=== PATIENT | female | born 1950 | race Caucasian/White ===

== ENCOUNTER 2017-11-24 10:17 | Outpatient (CLI) | payer MEDICARE, OTHER, MEDICAID | END 2017-11-24 10:18 | disposition home or self-care (01) | LOC: SC 10:17 | PROVIDERS: ATTEND Nurse Practitioner Family | DX: G47.31 Primary central sleep apnea (principal) | CPT/HCPCS: 99215; G0463; 99212 ==

== ENCOUNTER 2018-01-26 09:35 | Outpatient (CLI) | payer MEDICARE, OTHER, MEDICAID | END 2018-01-26 09:36 | disposition home or self-care (01) | LOC: SC 09:35 | PROVIDERS: ATTEND Nurse Practitioner Family | DX: G47.31 Primary central sleep apnea (principal); G47.33 Obstructive sleep apnea (adult) (pediatric) | CPT/HCPCS: 99214; G0463; 99212 ==

== ENCOUNTER 2018-01-27 11:11 | Emergency (ER) | payer MEDICARE, OTHER, MEDICAID ==
[2018-01-27] MEDS ORDERED: ALBUTEROL NEB 2.5 MG/3 ML INH STA (12:30)
--- NOTE | 2018-01-27 12:32 | ED Physician Documentation ---
History of Present Illness - Stated complaint Stated Complaint: HIGH BP - Chief complaint Chief Complaint: General - History obtained from History obtained from: Patient - History of Present Illness Timing: Today (This is a 67-year-old woman with long-standing hypertension on meds and long history of smoking who presents with a 30-minute episode of dyspnea on exertion this morning without chest pain, dizziness. She does have a cough productive of brown sputum. No diagnosis of COPD or emphysema.) - Additonal information Additional information: . Review of Systems Constitutional: denies: Fever, Chills Cardiac: denies: Chest pain / pressure, Palpitations Respiratory: reports: Dyspnea, Cough GI: denies: Abdominal Pain, Nausea, Vomiting PD PAST MEDICAL HISTORY - Past Medical History Cardiovascular: Hypertension GI: Ulcers - Past Surgical History Past Surgical History: Yes General: Appendectomy HEENT: Tonsil/Adenoidectomy - Present Medications Home Medications: Ambulatory Orders Medication Instructions Recorded Confirmed Baclofen [Lioresal] 30 mg PO TID 09/23/12 04/05/13 Levothyroxine Sodium [Levothroid] 200 mcg PO DAILY 09/23/12 04/05/13 Metoprolol Succinate [Toprol Xl] 100 mg PO BID 09/23/12 04/05/13 RX: Lisinopril 40 mg PO DAILY 09/23/12 04/05/13 Sertraline HCl [Zoloft] 200 mg PO DAILY 09/23/12 04/05/13 tiZANidine [Zanaflex] 8 mg PO Q8H 09/23/12 04/05/13 diazePAM [Valium] 5 mg PO TID PRN #15 tablet 09/24/12 04/05/13 HYDROcod/ACETAM 5/325 [Vicodin 1 - 2 ea PO Q6H PRN 04/05/13 04/05/13 5/325] HYDROcod/ACETAM 5/325 [Vicodin 1 - 2 ea PO Q6H PRN #15 tablet 04/05/13 5/325] Liothyronine Sodium [Cytomel] 5 mcg PO DAILY 04/05/13 04/05/13 Ondansetron Odt [Zofran] 4 mg TL Q6H PRN #10 tablet 04/05/13 RX: Albuterol Sulf [Ventolin Hfa 1 - 2 puffs INH Q4HR PRN #1 inhaler 01/27/18 Inhaler] RX: predniSONE [Prednisone] 60 mg PO DAILY 5 Days #15 tablet 01/27/18 - Allergies Allergies/Adverse Reactions: Allergies Allergy/AdvReac Type Severity Reaction Status Date / Time No Known Drug Allergies Allergy Verified 01/27/18 11:31 - Social History Does the pt smoke?: No Smoking Status: Never smoker Does the pt drink ETOH?: No PD ED PE NORMAL - Vitals Vital signs reviewed: Yes - General General: Alert and oriented X 3, No acute distress - HEENT HEENT: PERRL, EOMI - Neck Neck: Supple, no meningeal sign, No bony TTP - Cardiac Cardiac: RRR, No murmur - Respiratory Respiratory: No respiratory distress, Other (Wheezy throughout, nonfocal) - Abdomen Abdomen: Non tender - Extremities Extremities: No edema, No calf tenderness / cord - Neuro Neuro: Alert and oriented X 3, Normal speech Results - Vitals Vitals: Vital Signs - 24 hr 01/27/18 11:28 Temperature 36.8 C Heart Rate 98 Respiratory 15 Rate Blood Pressure 149/102 H O2 Saturation 98 Oxygen O2 Source Room air - EKG (time done) 1301 Rate: Rate (enter#) (97) Rhythm: NSR [place]: Normal Intervals: Normal NH QRS: Normal Ischemia: Non specific changes (v. mild STD lateral, some of it d/t motion) Computer interpretation: Agree with computer - Rads (name of study) 2v CXR Radiology: EMP read contemporaneously (Elevated left hemidiaphragm with lingular atelectasis but no focal airspace disease.) PD MEDICAL DECISION MAKING - ED course ED course: 67-year-old woman, a long-term smoker presents with complaints of elevated blood pressure and dyspnea. Blood pressure really is not that high, and the dyspnea seems related to bronchitis or may be COPD given her long-standing smoking history. No evidence of infection or cardiac issue. Chadron better and lungs were clear after breathing treatment. - Sepsis Event Vital Signs: Vital Signs - 24 hr 01/27/18 11:28 Temperature 36.8 C Heart Rate 98 Respiratory 15 Rate Blood Pressure 149/102 H O2 Saturation 98 Oxygen O2 Source Room air Departure - Departure Disposition: 01 Home, Self Care Clinical Impression: Bronchitis Condition: Good Record reviewed to determine appropriate education?: Yes Instructions: ED Bronchitis Asthmatic, ED Smoking Cessation Prescriptions: RX: Albuterol Sulf [Ventolin Hfa Inhaler] 1 - 2 puffs INH Q4HR PRN #1 inhaler PRN Reason: Shortness Of Air/Wheezing RX: predniSONE [Prednisone] 60 mg PO DAILY 5 Days #15 tablet Comments: Call your doctor to arrange a follow-up appointment, make the next available appointment. In the interim, return anytime if worse or if new symptoms develop. Your blood pressure was elevated today on check into the emergency department. This does not mean that you have hypertension, it is a common phenomenon to come to the emergency department and have elevated blood pressure. I recommend that you see your primary care physician within the week to have it rechecked when you are feeling better. Discharge Date/Time: 01/27/18 16:23
--- NOTE | 2018-01-27 13:07 | XRAY Report ---
Reason: dyspnea, ?COPD Procedure Date: 01/27/2018 Accession Number: [id number] / [id number] Procedure: XR - Chest 2 View X-Ray CPT Code: 88668 FULL RESULT: EXAM: CHEST RADIOGRAPHY EXAM DATE: 01/27/2018 12:41 PM. CLINICAL HISTORY: Dyspnea, ?COPD. COMPARISON: XR ACUTE ABDOMEN SERIES 10/02/2006 7:23 PM CHEST W/ 02/17/2013 1:37 PM. TECHNIQUE: 2 views. FINDINGS: Lungs/Pleura: Left diaphragm is elevated. There is linear atelectasis in the lingula. No pleural vision or pneumothorax. No consolidative pneumonia. Mediastinum: Heart size is normal. There is mild aortic tortuosity. Other: Spine fixation hardware overlies upper thoracic spine. IMPRESSION: Elevated left diaphragm with lingula atelectasis. No focal airspace disease. RADIA
[2018-01-27 13:23] LABS: CALCIUM 9.3 mg/dL (8.5-10.3); CREATININE 0.7 mg/dL (0.4-1.0)
[2018-01-27 16:09] VITALS: BP 136/88
== END 2018-01-27 16:23 | disposition home or self-care (01) ==
LOC: ED 11:11
DX: J40 Bronchitis, not specified as acute or chronic (principal); Z87.891 Personal history of nicotine dependence; I10 Essential (primary) hypertension; R94.31 Abnormal electrocardiogram [ECG] [EKG]
CPT/HCPCS: 71046; 80048; 84484; 93005; 94640; 99283

== ENCOUNTER 2018-03-03 09:34 | Outpatient (CLI) | payer MEDICARE, OTHER, MEDICAID | END 2018-03-03 09:35 | disposition home or self-care (01) | LOC: SC 09:34 | PROVIDERS: ATTEND Nurse Practitioner Family | DX: G47.31 Primary central sleep apnea (principal); G47.33 Obstructive sleep apnea (adult) (pediatric); G47.00 Insomnia, unspecified | CPT/HCPCS: 99214; G0463; 99212 ==

== ENCOUNTER 2018-08-12 09:25 | Outpatient (CLI) | payer MEDICARE, OTHER, MEDICAID ==
--- NOTE | 2018-08-13 05:55 | MRI Report ---
Reason: OTHER INSTABILITY, RIGHT KNEE Procedure Date: 08/12/2018 Accession Number: [id number] / [id number] Procedure: MRI - Knee RT W/O CPT Code: FULL RESULT: EXAM: RIGHT KNEE MRI WITHOUT CONTRAST EXAM DATE: 08/12/2018 11:23 AM. CLINICAL HISTORY: Other instability, right knee. Pain. COMPARISON: MRI 07/29/2018 (images only, no report available). TECHNIQUE: Multiplanar, multisequence T1-weighted and fluid-sensitive sequences of the knee without contrast. Other: None. FINDINGS: Bones: No gross fracture or bone lesion. Severe tricompartmental degenerative changes with moderate to severe mechanical wear of the articular surfaces, most prominent at the tibial plateaus. Large tricompartmental osteophytes with fragmentation. Moderate to severe lateral subluxation of the patella. Articular Cartilage: Diffuse full-thickness cartilage loss at the medial and lateral compartments and diffuse partial-thickness to full-thickness cartilage loss at the patellofemoral joint. Medial Meniscus: Diffuse degenerative maceration. Lateral Meniscus: Diffuse degenerative maceration. Cruciate Ligaments: No discernible intact fibers anterior cruciate ligament. Diffuse distortion of the posterior cruciate ligament. A few fibers may remain intact. Collateral Ligaments: Medial and lateral collateral ligaments grossly intact. Tendons: Quadriceps and patellar tendons unremarkable. Diffusely attenuated distal semimembranosus tendon. Some fibers may remain intact. Popliteus tendon difficult to discern. Musculature: Mild to moderate fatty atrophy in the posterior compartment distal thigh. Moderate to severe fatty atrophy posterior aspect of the calf. Other: Large joint effusion with diffuse synovitis and debris. Innumerable intra-articular bodies. Largest body in the superolateral aspect suprapatellar fluid measures 2.9 cm transverse. No popliteal cyst. Diffusely attenuated medial retinaculum and medial patellofemoral ligament. Mild subcutaneous edema anteriorly. Mild reactive edema in the fat pads. IMPRESSION: 1. Severe tricompartmental changes with moderate to severe mechanical wear at the articular surfaces. 2. Moderate to severe lateral subluxation of the patella. 3. Large joint effusion with diffuse synovitis, debris, and intra-articular bodies. 3 cm intra-articular body superolaterally. 4. Degenerative maceration medial and lateral menisci. 5. Complete rupture anterior cruciate ligament. High-grade partial versus complete disruption posterior cruciate ligament. These are likely chronic. 6. Diffusely attenuated medial retinaculum and medial patellofemoral ligament, likely due to chronic lateral patellar subluxation. 7. Moderate to severe fatty atrophy of the musculature, most prominent in the posterior calf. RADIA
== END 2018-08-12 09:26 | disposition home or self-care (01) ==
LOC: DI 09:25
PROVIDERS: ATTEND Nurse Practitioner Family
DX: M17.11 Unilateral primary osteoarthritis, right knee (principal); S83.011A Lateral subluxation of right patella, initial encounter; M65.861 Other synovitis and tenosynovitis, right lower leg; S83.511A Sprain of anterior cruciate ligament of right knee, initial encounter; S83.521A Sprain of posterior cruciate ligament of right knee, initial encounter; M62.561 Muscle wasting and atrophy, not elsewhere classified, right lower leg

== ENCOUNTER 2018-09-03 12:05 | Outpatient (CLI) | payer MEDICARE, OTHER, MEDICAID ==
--- NOTE | 2018-09-03 16:16 | XRAY Report ---
Reason: ACQUIRED DEFORMITY OF CHEST AND RIB Procedure Date: 09/03/2018 Accession Number: [id number] / [id number] Procedure: XR - Chest 2 View X-Ray CPT Code: 05132 FULL RESULT: EXAM: CHEST RADIOGRAPHY EXAM DATE: 09/03/2018 12:21 PM. CLINICAL HISTORY: Acquired deformity of chest and rib. COMPARISON: CHEST 2 VIEW 01/27/2018 12:40 PM. TECHNIQUE: 2 views. FINDINGS: Lungs/Pleura: No focal opacities evident. No pleural effusion. No pneumothorax. Normal volumes. Mediastinum: Heart and mediastinal contours are unremarkable. Other: Stable elevation of the left hemidiaphragm versus broad-based eventration. Stable posterior spinal fixation hardware upper thoracic spine. Stable multilevel degenerative osteophyte of the thoracic spine. IMPRESSION: 1. Stable elevation of the left hemidiaphragm versus broad-based eventration. 2. No appreciable infiltrates, effusion or edema. RADIA
== END 2018-09-03 12:06 | disposition home or self-care (01) ==
LOC: DI 12:05
PROVIDERS: ATTEND Registered Nurse
DX: M95.4 Acquired deformity of chest and rib (principal)
CPT/HCPCS: 71046

== ENCOUNTER 2018-12-15 10:01 | Outpatient (CLI) | payer MEDICARE, OTHER, MEDICAID ==
[2018-12-15 11:05] VITALS: BP 120/70
--- NOTE | 2018-12-15 11:05 | SLEEP CARE CONSULTATION ---
Information from patient questionnaire entered by Zuri Ravi. I have reviewed and concur with the information entered by Zuri Ravi. This document represents the service I personally performed and the decisions made by me, Brenda Moran, RN, MSN, DIRECTOR MEDICA[employer]. History of Present Illness Previous diagnosis: Moderate, Obstructive Sleep Apnea-Hypopnea Syndrome AHI: 25.7 Reason for CPAP/BiPAP follow up: other (9 month ) Accompanied by: childcare director Della Jones Equipment type: CPAP Equipment obtained from: [facility] Mask style: Nasal (Dreamwear) Mask brand: Respironics Backup mask available: Yes Last cushion change: 3 weeks ago HPI additional information: Patient came in a wheelchair. CPAP Compliance Data - Data Reviewed with Patient Average duration of nightly device use: 3.2 Compliance rate %: 24.4 (180 days) Current pressure setting (cmH2O): 17-20 Humidity settin Heated hose settin Average residual AHI: 12.5 Central apnea: 3.5 Obstructive apnea: 2.4 Hypopnea: 6.6 Average large leak: 37 mins Subjective Patient concerns: reports: mask leak noise (occasional), other (feeling clastrophibic at 4-5 am / waking at night due to car crusier that drives in driveway everynight waking her with the lights of car and noise. ). denies: aerophagia, mask discomfort, air blowing in eyes, condensation in mask/hose, nasal congestion, dry mouth, nose, throat, epistaxis Observed to snore while using device: No (sleeps alone) Current pressure setting perceived as: comfortable On therapy, patient: reports: sleeping better, awakening more refreshed, being more awake and alert during the day, more rested overall. denies: drowsiness while driving (does not drive) Initial [place] Sleepiness Scale score: 16 Current [place] Sleepiness Scale score: 1 Allergies and Home Medications Known drug allergies: No Home medication list reviewed: Yes Allergy and home medication list: Amitriptyline 75mg HS Lasix 20mg daily in morning Metoprolol 100mg tab one twice daily Lisinopril 40mg tab one daily Baclofen 20mg tab one three times daily Clotrimazole 1% cream Apply to affected area twice daily prn Levothyroxine 75mcg tab one daily Levothyroxine 100mcg one daily Liothyronin Sodium 5mcg one daily Celecoxib 100mg tab one twice daily Vitamin C 5000mg tab one daily Vitamin D 5000IU tab one daily Betaine 10mg tab one to two daily at bedtime Review of Systems Review of systems same as previous: No (added lasix for ankle edema. orthopedic consult for knee pain and surgery ?) Physical Exam Blood Pressure: 120/70 Cuff size: long Heart Rate: 95 O2 Saturation: 96 Weight (kg): 244 lb (at last doctors appt a week ago) Weight change since last visit: lost 6 pounds Impression and Plan 1. Obstructive Sleep Apnea-Hypopnea Syndrome, moderate, with poor treatment compliance and elevated residual AHI. On CPAP therapy, the patient has better sleep quality and is more rested overall. It appears her residual is elevated only when significant mask leaks. At the beginning and end of compliance her AHI was normal with minimal mask leaks. Thus she is advised to saida her mask where it fits best as the last 2 nights. To reduce waking from car lights of nightly cruizer and improve sleep efficiency and compliance, she is advised to consider black out curtains or blinds. She is also advised to contact the police of this nightly activity that disrupts her sleep. For her claustrophobia feeling most mornings, even with mask leaks controlled, I will increase her autoCPAP pressure slightly. She is to contact me if pressure uncomfortable or if still claustrophobic. She was again reminded of compliance goals. But basically the goal is to use CPAP with all sleep for maximum benefit of treatment. Also she would like to update her CPAP but needs to be compliant first. Patient's apnea s everity and rationale for treatment to reduce apnea, improve sleep quality and reduce cardiovascular and cerebrovascular events was reviewed. I also reviewed the benefit of consistent device use of CPAP for depression/anxiety, and pain management. * Change CPAP pressure to 18-20 cmH2O * Black out curtains, * Adjust mask * Update mask cushions more frequently. * Notify me if snoring with mask or feeling that the pressure is too much or too little * Attempt to lose weight * Return for follow up in 1-2 months , or sooner if concerns arise I spent 100% of this 35 minute visit face to face with the patient with greater than 50% of this was spent time counseling the patient and coordination of care.
== END 2018-12-15 10:02 | disposition home or self-care (01) ==
LOC: SC 10:01
PROVIDERS: ATTEND Nurse Practitioner Family
DX: G47.33 Obstructive sleep apnea (adult) (pediatric) (principal)
CPT/HCPCS: 99214; G0463; 99212

== ENCOUNTER 2019-01-24 10:07 | Outpatient (CLI) | payer MEDICARE, OTHER, MEDICAID | END 2019-01-24 10:08 | disposition short-term general hospital (02) | LOC: EMS 10:07 | PROVIDERS: ATTEND Surgery | DX: R25.9 Unspecified abnormal involuntary movements (principal); R53.1 Weakness; W06.XXXA Fall from bed, initial encounter; Y92.003 Bedroom of unspecified non-institutional (private) residence as the place of occurrence of the external cause | CPT/HCPCS: A0425; A0429 ==

== ENCOUNTER 2019-02-04 10:15 | Outpatient (CLI) | payer MEDICARE, OTHER, MEDICAID ==
[2019-02-04 15:47] LABS: MONOCYTES % (AUTO) 6.4 %; RED BLOOD COUNT 4.76 10^6/uL (4.20-5.40)
[2019-02-04 15:53] LABS: BASOPHILS % (AUTO) 1.6 %; EOSINOPHILS % (AUTO) 1.4 %; HGB - HEMOGLOBIN 14.3 g/dL (12.0-16.0); LYMPHOCYTES % (AUTO) 23.3 %; MEAN CORPUSCULAR HGB CONC 31.6 g/dL (32.0-36.0); MEAN PLATELET VOLUME 10.3 fL (7.9-10.8); PLT - PLATELET COUNT 506 10^3/uL (130-450); RED CELL DISTRIBUTION WIDTH 16.3 % (12.0-15.0); WHITE BLOOD COUNT 12.1 x10^3/uL (4.8-10.8)
[2019-02-04 15:57] LABS: ABNORMAL LYMPHS % (MANUAL) 0 %
[2019-02-04 15:58] LABS: ALBUMIN 3.6 g/dL (3.2-5.5); ALBUMIN/GLOBULIN RATIO 1.2 (1.0-2.2); BILIRUBIN,TOTAL 0.6 mg/dL (0.2-1.0); CALCIUM 8.8 mg/dL (8.5-10.3); CREATININE 0.8 mg/dL (0.4-1.0); TOTAL PROTEIN 6.5 g/dL (6.7-8.2)
[2019-02-04 16:45] LABS: BAND NEUTROPHILS % (MANUAL) 2 %; EOSINOPHILS # (MANUAL) 0.2 10^3/uL (0-0.7); LYMPHOCYTES # (MANUAL) 2.7 10^3/uL (1.5-3.5); LYMPHOCYTES % (MANUAL) 22 %; MONOCYTES # (MANUAL) 1.3 10^3/uL (0.0-1.0)
[2019-02-04 16:48] LABS: DIFFERENTIAL COMMENT MANUAL DIFFERENTIAL; PLATELET ESTIMATE, MANUAL INCREASED (>450,000) (NORMAL); PLATELET MORPHOLOGY NORMAL APPEARANCE (NORMAL); RBC MORPHOLOGY (MULTIPLE) NORMAL APPEARANCE (NORMAL)
== END 2019-02-04 23:59 | disposition home or self-care (01) ==
LOC: LAB.R 10:15
DX: N17.9 Acute kidney failure, unspecified (principal); G93.40 Encephalopathy, unspecified; M48.061 Spinal stenosis, lumbar region without neurogenic claudication; E03.9 Hypothyroidism, unspecified
CPT/HCPCS: 80053; 84443; 85025

== ENCOUNTER 2019-02-10 02:10 | Outpatient (CLI) | payer MEDICARE, OTHER, MEDICAID ==
[2019-02-10 03:34] LABS: BASOPHILS # (AUTO) 0.1 10^3/uL (0.0-0.1); BASOPHILS % (AUTO) 1.4 %; EOSINOPHILS # (AUTO) 0.2 10^3/uL (0.0-0.7); EOSINOPHILS % (AUTO) 2.4 %; HGB - HEMOGLOBIN 13.5 g/dL (12.0-16.0); LYMPHOCYTES % (AUTO) 41.7 %; MEAN CORPUSCULAR HEMOGLOBIN 29.6 pg (27.0-31.0); MEAN CORPUSCULAR HGB CONC 31.3 g/dL (32.0-36.0); MEAN CORPUSCULAR VOLUME 94.7 fL (81.0-99.0); MEAN PLATELET VOLUME 10.7 fL (7.9-10.8); MONOCYTES # (AUTO) 0.7 10^3/uL (0.0-1.0); NEUTROPHILS # (AUTO) 4.5 10^3/uL (1.5-6.6); PLT - PLATELET COUNT 338 10^3/uL (130-450); RED BLOOD COUNT 4.56 10^6/uL (4.20-5.40); RED CELL DISTRIBUTION WIDTH 16.3 % (12.0-15.0); WHITE BLOOD COUNT 9.7 x10^3/uL (4.8-10.8)
[2019-02-10 03:39] LABS: CALCIUM 8.8 mg/dL (8.5-10.3); CREATININE 0.7 mg/dL (0.4-1.0)
== END 2019-02-10 23:59 | disposition home or self-care (01) ==
LOC: LAB.R 02:10
DX: G93.40 Encephalopathy, unspecified (principal)
CPT/HCPCS: 80048; 85025

== ENCOUNTER 2020-02-23 12:44 | Outpatient (CLI) | payer MEDICARE, OTHER, MEDICAID ==
--- NOTE | 2020-02-23 15:29 | XRAY Report ---
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 COMPARISON: None. FINDINGS: Bones: C7-T4 posterior fixation hardware. No fractures or dislocations. No suspicious bony lesions. 12 pairs of ribs are noted, and appear intact where visualized. Moderate to severe degenerative disc changes noted throughout the lumbar spine. Ankylosis of the upper and lower thoracic spine compatibl e with reported history of ankylosing spondylitis. Soft tissues: No paravertebral stripe thickening. IMPRESSION: 1. No fracture. No acute osseous lesion. If there is continued clinical concern for pathology, then M RI should be considered for further evaluation. 2. Multilevel ankylosis compatible with reported history of ankylosing spondylitis. 3. Moderate to severe multilevel degenerative disc disease. Reviewed by: Kristyn Avila MD, PhD on 02/23/2020 3:27 PM PST Approved by: Kristyn Avila MD, PhD on 02/23/2020 3:27 PM PST Station ID: [id number]
== END 2020-02-23 12:45 | disposition home or self-care (01) ==
LOC: DI.S 12:44
PROVIDERS: ATTEND Registered Nurse
DX: M45.0 Ankylosing spondylitis of multiple sites in spine (principal); M51.34 Other intervertebral disc degeneration, thoracic region
CPT/HCPCS: 72070

== ENCOUNTER 2020-03-28 09:19 | Outpatient (CLI) | payer MEDICARE, OTHER, MEDICAID ==
--- NOTE | 2020-03-28 10:17 | SLEEP CARE CONSULTATION ---
Information from patient questionnaire entered by Zuri Ravi. I have reviewed and concur with the information entered by Zuri Ravi. This document represents the service I personally performed and the decisions made by , Eli Mensah ARNP. History of Present Illness Service Date and Time: 03/28/2020918 Previous diagnosis: Moderate, Obstructive Sleep Apnea-Hypopnea Syndrome AHI: 25.7 (in 2014)(14.9 in 2012) Reason for follow up: annual (last seen 11/2018) Equipment type: CPAP Equipment obtained from: [employer] (cannot get supplies, they no longer deal with them) Mask style: Full face Mask brand: Respironics (Dreamwear) Backup mask available: No (when replaced with keep old mask) Last cushion change: 1 week ago Prior sleep studies: Yes Year and Where: 2012 and 2014 - [facility]; 2007 - [facility] Type of Sleep Study: Polysomnography HPI additional information: ALEYDA SALGADO was diagnosed to have moderate, AHI 25.7, obstructive sleep apne a-hypopnea syndrome and returned today accompanied by her caregiver for CPAP therapy annual follow-up. CPAP Compliance Data - Data Reviewed with Patient Average duration of nightly device use: 2 hr 29 min Compliance rate %: 5.6 (180 days) Current pressure setting (cmH2O): 18-20 Humidity settin Heated hose settin Average residual AHI: 7.9 Average large leak: 20 min 28 sec Subjective Missed days of use due to: reports: other (issues with peeping Devonte waking me up) Patient concerns: reports: mask discomfort (was unable to replace mask for a long time contributing to not wearing mask for full night), air blowing in eyes (better with new mask), mask leak noise (better with new mask), other (taking mask off without realizing it). 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 Obstructive Sleep Apnea-Hypopnea Syndrome, moderate, with poor treatment compliance and fair apnea control with elevated AHI. On CPAP therapy, the patient has better sleep quality and is more rested overall. Patient has been having more problems with sleeping with lights coming in her windows (a supposed peeping devonte) and keep her awake for about 3 months straight. She states this has since improved and no lights are waking her up. She was unable to afford to get the blackout curtains discussed at her last visit. She will see if she can get them now and put them up to reduce chance of lights bothering her at night. She has also found that she has removed her mask at night due to it being uncomfortable since she was unable to replace it normally. She only recently found a new mask and things have improved since she started using it. The patients CPAP is also over 5 years old and of reasonable use. Thus, the CPAP will be updated. A DWO prescription will be made. Compliance guidelines for new device and follow up discussed. For patient supply concerns, her DME is no longer carrying supplies. She has been unable to get supplies from her DME. Patient was informed that another DME can be used. I will have my academic services coordinator inform of DME options. A DWO prescription will then be made. Patient advised to contact this office if further supply problems. Patient's apnea severity and rationale for treatment to reduce apnea, improve sleep quality and reduce cardiovascular and cerebrovascular events was reviewed. I also reviewed the benefit of consistent device use of CPAP for depression and anxiety. * Continue auto CPAP pressure at 18-20 cmH2O * Transfer DME * Update APAP machine * Notify me if snoring with mask or feeling that the pressure is too much or too little * Attempt to lose weight * Call this office if any problems using CPAP * Return for follow up in 1-2 months after obtaining new machine, or sooner if concerns arise Counseling Topics: Spare mask, Weight loss health impact Visit Type: In Office Other Participants: Caregiver Time Spent with Patient (minutes): 23 Provider Statement: I spent 100% of the Face to Face Visit with the patient with greater than 50% spent counseling the patient and coordination of care.
== END 2020-03-28 09:20 | disposition home or self-care (01) ==
LOC: SC 09:19
PROVIDERS: ATTEND Nurse Practitioner Family
DX: G47.33 Obstructive sleep apnea (adult) (pediatric) (principal); E66.9 Obesity, unspecified; Z68.39 Body mass index [BMI] 39.0-39.9, adult
CPT/HCPCS: 99213; G0463; 99212

== ENCOUNTER 2020-07-18 09:36 | Outpatient (CLI) | payer MEDICARE, OTHER, MEDICAID ==
--- NOTE | 2020-07-18 10:24 | SLEEP CARE CONSULTATION ---
Information from patient questionnaire entered by Zuri Ravi. I have reviewed and concur with the information entered by Zuri Ravi. This document represents the service I personally performed and the decisions made by , Eli Mensah ARNP. History of Present Illness Service Date and Time: 07/18/2020 0936 Previous diagnosis: Moderate, Obstructive Sleep Apnea-Hypopnea Syndrome AHI: 25.7 (in 2014)(14.9 in 2012) Reason for follow up: first compliance after device update Equipment type: CPAP Equipment obtained from: [employer] (getting supplies but having communication issue s on her mask) Mask style: Full face Backup mask available: No (old mask does not) Last cushion change: couple months Prior sleep studies: Yes Year and Where: 2012 and 2014 - [facility]; 2007 - [facility] Type of Sleep Study: Polysomnography HPI additional information: ALEYDA SALGADO was diagnosed to have moderate, AHI 25.7, obstructive sleep apnea-hypopnea syndrome and returned today with caregiver for CPAP therapy first compliance after updating device follow-up. CPAP Compliance Data - Data Reviewed with Patient Average duration of nightly device use: 53 min 14 sec Compliance rate %: 0 Current pressure setting (cmH2O): 18-20 Humidity settin Heated hose settin Average residual AHI: 17.6 Average large leak: 27 min 28 sec Subjective Missed days of use due to: reports: mask issues (many problems concerning mask) Patient concerns: reports: mask discomfort, air blowing in eyes, mask leak noise, other (unable to use current mask due to being unable to raise arms to put mask on). denies: aerophagia, condensation in mask/hose, nasal congestion, dry mouth, nose, throat, epistaxis Observed to snore while using device: No Current pressure setting perceived as: comfortable On therapy, patient: reports: sleeping better, awakening more refreshed, being more awake and alert during the day, more rested overall. denies: drowsiness while driving Initial [place] Sleepiness Scale score: 16 (in 2012) Current [place] Sleepiness Scale score: 0 Allergies and Home Medications Drug allergies reviewed: Yes (NKDA) Home medication list reviewed: Yes (no changes) Review of Systems Review of systems same as previous: Yes (no changes) Physical Exam Heart Rate: 62 O2 Saturation: 95 Height: 5 ft 4 in Weight: 226 lb Body Mass Index: 38.7 BMI Classification: Obese Impression and Plan 1. Obstructive Sleep Apnea-Hypopnea Syndrome, moderate, with poor treatment compliance and poor apnea control. On CPAP therapy, the patient has better sleep quality and is more rested overall. She has not been able to use her machine because the mask is not fitting right and she is getting air leaking into her eyes. She is not able to put the new full face mask on because she cannot lift her arms high enough to put on the headgear properly. She did try to tell someone at [facility] that she needed a different mask but was told she could not change until September. She would like to go back to using a full face mask that is an AirTouch F20 medium that works better for her and she is able to put it on herself. Patient's apnea severity and rationale for treatment to reduce apnea, improve sleep quality and reduce cardiovascular and cerebrovascular events was reviewed. I also reviewed the benefit of consistent device use of CPAP for depression/anxiety. * Continue auto CPAP pressure at 18-20 cmH2O * Change back to AirTouch F20 medium full face mask * Notify me if snoring with mask or feeling that the pressure is too much or too little * Attempt to lose weight * Call this office if any problems using CPAP * Return for follow up in 1-2 months, or sooner if concerns arise Counseling Topics: Weight loss health impact Visit Type: In Office Time Spent with Patient (minutes): 26 Provider Statement: I spent 100% of the Face to Face Visit with the patient with greater than 50% spent counseling the patient and coordination of care.
== END 2020-07-18 09:37 | disposition home or self-care (01) ==
LOC: SC 09:36
PROVIDERS: ATTEND Nurse Practitioner Family
DX: G47.33 Obstructive sleep apnea (adult) (pediatric) (principal); E66.9 Obesity, unspecified; Z68.38 Body mass index [BMI] 38.0-38.9, adult
CPT/HCPCS: 99213; G0463; 99212

== ENCOUNTER 2020-08-22 09:15 | Outpatient (CLI) | payer MEDICARE, OTHER, MEDICAID ==
--- NOTE | 2020-08-22 10:26 | SLEEP CARE CONSULTATION ---
Information from patient questionnaire entered by Zuri Ravi. I have reviewed and concur with the information entered by Zuri Ravi. This document represents the service I personally performed and the decisions made by , Eli Mensah ARNP. History of Present Illness Service Date and Time: 08/22/2020 09 Previous diagnosis: Moderate, Obstructive Sleep Apnea-Hypopnea Syndrome AHI: 25.7 (in 2014)(14.9 in 2012) Reason for follow up: one month Equipment type: CPAP Equipment obtained from: [employer] (want machine back due to low compliance) Mask style: Full face (triangle, old mask) Backup mask available: No (needs supplies) Last cushion change: using old mask Prior sleep studies: Yes Year and Where: 2012 and 2014 - [facility]; 2007 - [facility] Type of Sleep Study: Polysomnography HPI additional information: ALEYDA SALGADO was diagnosed to have moderate, AHI 25.7, obstructive sleep apnea-hypopnea syndrome and returned today with caregiver for CPAP therapy one month follow-up. CPAP Compliance Data - Data Reviewed with Patient Average duration of nightly device use: 2 hr 58 min Compliance rate %: 13.3 Current pressure setting (cmH2O): 18-20 Humidity settin Heated hose settin Average residual AHI: 11.9 Average large leak: 31 min 50 sec Subjective Missed days of use due to: reports: other (insomnia limiting mask use) Patient concerns: denies: aerophagia, mask discomfort, air blowing in eyes, mask leak noise, condensation in mask/hose, nasal congestion, dry mouth, nose, throat , epistaxis, other Observed to snore while using device: No Current pressure setting perceived as: comfortable On therapy, patient: reports: sleeping better, awakening more refreshed, being more awake and alert during the day, more rested overall. denies: drowsiness while driving Initial [place] Sleepiness Scale score: 16 (in 2012) Current [place] Sleepiness Scale score: 0 Allergies and Home Medications Home medication list reviewed: Yes (no new meds) Review of Systems Review of systems same as previous: No (insomnia) Physical Exam Heart Rate: 77 O2 Saturation: 97 Height: 5 ft 4 in Weight: 228 lb Weight change since last visit: 3 ob gain Body Mass Index: 39.1 BMI Classification: Obese Impression and Plan 1. Obstructive Sleep Apnea-Hypopnea Syndrome, moderate, with poor treatment compliance and fair apnea control with elevated residual AHI. On CPAP therapy, the patient has better sleep quality and is more rested overall. She is having insomnia. She is listening to radio programs until 2 AM and then switches to classical music channel to go to sleep. She falls asleep from 30 minutes or if it goes to 2 hours she knows she has insomnia and will not fall asleep. She gets up when the light wakes her up in the morning. She normally gets up about 5-6 AM. She will try to go back to bed for an hour or so but is not always able to sleep. On nights she cannot go to sleep she is not sure why she cannot sleep. She does use sequencing tightening muscles and relaxation to try to relax when she goes to bed. She denies ruminating thoughts or anxieties. She states her insomnia initially started with lights coming in her window early in the morning and waking her up thinking there was a peeping sony a long time ago. She was advised to cover the window with something to block the light coming in from her window in the mornings and waking her up. Then she can try to sleep longer and get 4 or more hours of sleep with her CPAP on. She voiced understanding. She states [facility] wants her to return her new machine. She still has an old machine that was working fine when she got the new machine. I advised her to switch back to the older machine until she is able to get her compliance numbers up. She is to put mask on when laying down and try to associate sleeping in the bed with putting on the mask. She agreed with plan of care. I also discussed with patient that I think it would be good to have a titration study to determine if she should need a BIPAP machine since she is mainly using 20 cmH2O on her CPAP and still has an elevated residual AHI. She would need someone to stay with her to help her to the bathroom during the night. I advised her to talk to her caregiver and family to see if someone can stay a night with her for a titration study. We will revisit this once we are able to improve her compliance. Patient's apnea severity and rationale for treatment to reduce apnea, improve sleep quality and reduce cardiovascular and cerebrovascular events was reviewed. I also reviewed the benefit of consistent device use of CPAP for hypertension and depression/anxiety. * Continue auto CPAP pressure at 18-20 cmH2O * Return new CPAP to [facility] and use old machine * Increase compliance use so we may revisit a possible titration study * Notify me if snoring with mask or feeling that the pressure is too much or too little * Attempt to lose weight * Call this office if any problems using CPAP * Return for follow up in 1-2 months to recheck compliance, or sooner if concerns arise Counseling Topics: Spare mask, Weight loss health impact Visit Type: In Office Other Participants: Caregiver Time Spent with Patient (minutes): 44 Provider Statement: I spent 100% of the Face to Face Visit with the patient with greater than 50% spent counseling the patient and coordination of care.
== END 2020-08-22 09:16 | disposition home or self-care (01) ==
LOC: SC 09:15
PROVIDERS: ATTEND Nurse Practitioner Family
DX: G47.33 Obstructive sleep apnea (adult) (pediatric) (principal); E66.9 Obesity, unspecified; Z68.39 Body mass index [BMI] 39.0-39.9, adult; G47.00 Insomnia, unspecified
CPT/HCPCS: 99215; G0463; 99212

== ENCOUNTER 2020-10-17 09:33 | Outpatient (CLI) | payer MEDICARE, OTHER, MEDICAID ==
--- NOTE | 2020-10-17 10:30 | SLEEP CARE CONSULTATION ---
Information from patient questionnaire entered by Zuri Ravi. I have reviewed and concur with the information entered by Zuri Ravi. This document represents the service I personally performed and the decisions made by , Eli Mensah ARNP. History of Present Illness Service Date and Time: 10/17/2020 0933 Previous diagnosis: Moderate, Obstructive Sleep Apnea-Hypopnea Syndrome AHI: 25.7 (in 2014)(14.9 in 2012) Reason for follow up: other (2 month) Equipment type: CPAP Equipment obtained from: [employer] (She wants to change to [employer]) Mask style: Full face (AirFit F20) Backup mask available: No (needs supplies) Prior sleep studies: Yes Year and Where: 2012 and 2014 - [facility]; 2007 - [facility] Type of Sleep Study: Polysomnography HPI additional information: ALEYDA SALGADO was diagnosed to have moderate, AHI 25.7, obstructive sleep apnea-hypopnea syndrome and returned today with caregiver for CPAP therapy two month follow-up. CPAP Compliance Data - Data Reviewed with Patient Average duration of nightly device use: 2 hr 56 min Compliance rate %: 11.7 (60 days) Current pressure setting (cmH2O): 18-20 Humidity settin Heated hose settin Average residual AHI: 11.6 Average large leak: 32 min 9 sec Subjective Patient concerns: reports: air blowing in eyes. denies: aerophagia, mask discomfort, mask leak noise, condensation in mask/hose, nasal congestion, dry mouth, nose, throat, epistaxis, other Observed to snore while using device: No Current pressure setting perceived as: comfortable On therapy, patient: reports: sleeping better, awakening more refreshed, being more awake and alert during the day, more rested overall. denies: drowsiness while driving (she doesn't drive) Initial [place] Sleepiness Scale score: 16 (in 2012) Current [place] Sleepiness Scale score: 0 Allergies and Home Medications Home medication list reviewed: Yes (Quetiapine 25 mg at bedtime) Review of Systems Review of systems same as previous: Yes (insomnia) Physical Exam Heart Rate: 64 O2 Saturation: 94 Height: 5 ft 4 in Weight: 232 lb Body Mass Index: 39.8 BMI Classification: Obese Impression and Plan 1. Obstructive Sleep Apnea-Hypopnea Syndrome, moderate, with poor treatment compliance and fair apnea control. On CPAP therapy, the patient has better sleep quality and is more rested overall. Patient states her insomnia has gotten worse and she did not like the last 2 nights. She is also not able to get supplies because her compliance has been so poor that her insurance is not covering them at this time. She needs to get more supplies and discussed with her possibly getting some offline to supplement until she is able to reach compliance. She would like to transfer her DME to [facility]. I will have my watershed coordinator inform of DME options. I will write to transfer her DME but I emphasized with her that she may not be able to get supplies from them until she brings up her compliance. She voiced understanding. She was encouraged to use her CPAP with all naps and to put on when lying in bed listening to her radio to prevent from falling asleep without it. She voiced understanding and agreement with this plan of care. I will follow up with her again in 1 to 2 months. We did continue to discuss getting a titration study but patient is concerned about being able to stay overnight and needing help to the bathroom. Patient's apnea severity and rationale for treatment to reduce apnea, improve sleep quality and reduce cardiovascular and cerebrovascular events was reviewed. I also reviewed the benefit of consistent device use of CPAP for hypertension and depression/anxiety. * Continue auto CPAP pressure at 18-20 cmH2O * Transfer DME and update supplies once compliance has been reached * Notify me if snoring with mask or feeling that the pressure is too much or too little * Attempt to lose weight * Call this office if any problems using CPAP * Return for follow up in 1-2 months, or sooner if concerns arise Counseling Topics: Spare mask, Weight loss health impact Visit Type: In Office Other Participants: Caregiver Time Spent with Patient (minutes): 29 Provider Statement: I spent 100% of the Face to Face Visit with the patient with greater than 50% spent counseling the patient and coordination of care.
== END 2020-10-17 09:34 | disposition home or self-care (01) ==
LOC: SC 09:33
PROVIDERS: ATTEND Nurse Practitioner Family
DX: G47.33 Obstructive sleep apnea (adult) (pediatric) (principal); E66.9 Obesity, unspecified; Z68.39 Body mass index [BMI] 39.0-39.9, adult
CPT/HCPCS: 99213; G0463; 99212

== ENCOUNTER 2020-12-20 09:38 | Outpatient (CLI) | payer MEDICARE, OTHER, MEDICAID ==
--- NOTE | 2020-12-20 10:45 | SLEEP CARE CONSULTATION ---
Information from patient questionnaire entered by Zuri Ravi. I have reviewed and concur with the information entered by Zuri Ravi. This document represents the service I personally performed and the decisions made by , Eli Mensah ARNP. History of Present Illness Service Date and Time: 12/20/2020 0938 Previous diagnosis: Moderate, Obstructive Sleep Apnea-Hypopnea Syndrome AHI: 25.7 (in 2014)(14.9 in 2012) Reason for follow up: other (2 month) Equipment type: CPAP Equipment obtained from: [employer] (want machine back due to low compliance; she returned device) Mask style: Full face (triangle, old mask) Backup mask available: No (needs supplies; ordered wrong one on [employer]) Last cushion change: 6-8 months Prior sleep studies: Yes Year and Where: 2014 and 2012 - [facility]; 2007 - [facility] Type of Sleep Study: Polysomnography HPI additional information: ALEYDA SALGADO was diagnosed to have moderate, AHI 25.7, obstructive sleep apnea-hypopnea syndrome and returned today for CPAP therapy two month follow-up. CPAP Compliance Data - Data Reviewed with Patient Average duration of nightly device use: 3 hr 11 min Compliance rate %: 15 (60 days) Current pressure setting (cmH2O): 18-20 Humidity settin Heated hose settin Average residual AHI: 12.8 Average large leak: 46 min 55 sec Subjective Patient concerns: reports: air blowing in eyes (needs to update her mask), mask leak noise. denies: aerophagia, mask discomfort, condensation in mask/hose, nasal congestion, dry mouth, nose, throat, epistaxis, other Observed to snore while using device: No Current pressure setting perceived as: comfortable On therapy, patient: reports: sleeping better, awakening more refreshed, being more awake and alert during the day, more rested overall. denies: drowsiness while driving Initial [place] Sleepiness Scale score: 16 (in 2012) Current [place] Sleepiness Scale score: 4 Allergies and Home Medications Home medication list reviewed: Yes (no changes) Review of Systems Review of systems same as previous: No (cataract surgeries 2 months ago) Physical Exam Heart Rate: 59 O2 Saturation: 95 Height: 5 ft 4 in Weight: 236 lb Body Mass Index: 40.5 BMI Classification: Morbidly Obese Impression and Plan 1. Obstructive Sleep Apnea-Hypopnea Syndrome, moderate, with poor treatment compliance and fair apnea control with mild elevation of residual AHI. On CPAP therapy, the patient has better sleep quality and is more rested overall. Patient tries to wear the device as much as she can but she has insomnia and does not sleep. I encouraged her to use her device when she sleeps at night and for all naps to try to increase her compliance. Patient has had to return her last device and was told that she has to requalify before any [employer] company will take her back. Patient encouraged to get some supplies on line so that she has a mask that fits well, seals and she has less mask leaks. Patient is using an old device that she has set at 18 to 20 cm of water. It is a REMstar 60 series. I informed the patient that [employer] has a recall on several devices like the patients machine. Patient was encouraged to register their device online with [employer] for the recall to see if their device is affected. If their device is affected they should start a claim. Patient denies any black particles seen in machine or hoses, any unusual odors coming from device. Patient has not experienced any physical symptoms such as upper airway irritation, headache, skin or eye irritation, asthma, nausea/vomiting, difficulty breathing or chest pain. Patient informed that they may use an inline CPAP filter that they can obtain online to reduce chance of any particles being inhaled or ingested. We discussed thoroughly the health risks of not using the CPAP versus continuing use with the filter in place. If patient is not able to sleep due to waking up choking, gasping for air or other respiratory distress that they may decide to continue using it until it is either replaced or repaired. Patient voiced understanding and agreement with plan. Patient's apnea severity and rationale for treatment to reduce apnea, improve sleep quality and reduce cardiovascular and cerebrovascular events was reviewed. I also reviewed the benefit of consistent device use of CPAP for hypertension and depression/anxiety. * Continue auto CPAP pressure at 18-20 cmH2O * Patient will register her device for recall * HST to requalify since she failed APAP trial/compliance * Notify me if snoring with mask or feeling that the pressure is too much or too little * Attempt to lose weight * Call this office if any problems using CPAP * Return for follow up after HST, or sooner if concerns arise Counseling Topics: Spare mask, Weight loss health impact Visit Type: In Office Other Participants: Caregiver Time Spent with Patient (minutes): 28 Provider Statement: I spent 100% of the Face to Face Visit with the patient with greater than 50% spent counseling the patient and coordination of care.
== END 2020-12-20 09:39 | disposition home or self-care (01) ==
LOC: SC 09:38
PROVIDERS: ATTEND Nurse Practitioner Family
DX: G47.33 Obstructive sleep apnea (adult) (pediatric) (principal); E66.01 Morbid (severe) obesity due to excess calories; Z68.41 Body mass index [BMI] 40.0-44.9, adult
CPT/HCPCS: 99213; G0463; 99212

== ENCOUNTER 2020-12-27 12:00 | Outpatient (CLI) | payer MEDICARE, OTHER, MEDICAID ==
[2020-12-27 20:26] LABS: BILIRUBIN,URINE NEGATIVE (NEGATIVE); CLARITY,URINE CLEAR (CLEAR); GLUCOSE, URINE (UA) NEGATIVE (NEGATIVE); KETONES,URINE (UA) NEGATIVE (NEGATIVE); LEUKOCYTE ESTERASE, URINE NEGATIVE (NEGATIVE); NITRITE,URINE NEGATIVE (NEGATIVE); OCCULT BLOOD,URINE NEGATIVE (NEGATIVE); PH,URINE 5.5 PH (5.0-7.5); PROTEIN,URINE NEGATIVE (NEGATIVE); UROBILINOGEN,URINE 0.2 (NORMAL) E.U./dL (NORMAL)
== END 2020-12-27 23:59 | disposition home or self-care (01) ==
LOC: LAB.S 12:00
PROVIDERS: ATTEND Registered Nurse
DX: N39.41 Urge incontinence (principal)
CPT/HCPCS: 81003; 87086

== ENCOUNTER 2021-01-08 09:52 | Outpatient (CLI) | payer MEDICARE, OTHER, MEDICAID | END 2021-01-08 09:53 | disposition home or self-care (01) | LOC: SC 09:52 | PROVIDERS: ATTEND Nurse Practitioner Family | DX: Z53.9 Procedure and treatment not carried out, unspecified reason (principal) ==

== ENCOUNTER 2021-12-17 08:35 | Outpatient (CLI) | payer MEDICARE, OTHER, MEDICAID ==
--- NOTE | 2021-12-17 13:09 | Mammography Report ---
BILATERAL DIGITAL SCREENING MAMMOGRAM 3D/2D WITH EXAGGERATED CC: 12/17/2021 CLINICAL: Routine screening. Family history of breast cancer. Comparison is made to exams dated: 07/30/2010 mammogram and 06/12/2007 mammogram - [facility]. There are scattered areas of fibroglandular density in both breasts (category b / 25%-50% glandular t issue). There is a possible new irregular equal density focal asymmetry in the left breast central to the nip ple anterior depth. No other significant masses, calcifications, or other findings are seen in either breast. IMPRESSION: INCOMPLETE: NEEDS ADDITIONAL IMAGING EVALUATION The possible new irregular equal density focal asymmetry in the left breast is indeterminate. Additi onal views with possible ultrasound are recommended. Based on the Tyrer Cuzick model (a risk assessment model) the patients lifetime risk is 10.9% and he r 10 year risk is 8.2%. According to the ACR, ACS, and NCCN guidelines, an annual breast MRI exam stan ng with mammogram is recommended if the patients lifetime risk is 20% or greater. This exam was interpreted at Station ID: [id number]. NOTE: For mammograms, a report in lay terms will be sent to the patient. Approximately 15% of breast malignancies will not be visualized mammographically. In the management of a palpable breast mass, a negative mammogram must not discourage biopsy of a clinically suspicious lesion. Electronically Signed By: Christiano Banks M.D. aty/:12/17/2021 09:49:09 ACR BI-RADS Category 0: Incomplete 3340F PARENCHYMAL PATTERN: (A) - The breast(s) demonstrate(s) scattered fibroglandular densities. BI-RADS CATEGORY: (0) - 0 Mammo and US [id number] Immediate follow-up LATERALITY: (L)
== END 2021-12-17 08:36 | disposition home or self-care (01) ==
LOC: DI.S 08:35
PROVIDERS: ATTEND Registered Nurse
DX: Z12.31 Encounter for screening mammogram for malignant neoplasm of breast (principal); Z80.3 Family history of malignant neoplasm of breast

== ENCOUNTER 2022-01-18 12:19 | Outpatient (CLI) | payer MEDICARE, OTHER, MEDICAID ==
--- NOTE | 2022-01-21 10:04 | Mammography Report ---
UNILATERAL LEFT DIGITAL DIAGNOSTIC MAMMOGRAM 3D/2D: 01/18/2022 CLINICAL: Patient returns today to evaluate a focal asymmetry in the left breast. Comparison is made to exams dated: 12/17/2021 mammogram, 07/30/2010 mammogram, and 06/12/2007 mammogram - [facility]. There are scattered areas of fibroglandular density in the left breast (category b / 25%-50% glandula r tissue). There is an oval focal asymmetry in the left breast at 1 o'clock in the retroareolar region. No other significant masses or calcifications are seen in the breast. IMPRESSION: INCOMPLETE: NEEDS ADDITIONAL IMAGING EVALUATION The oval focal asymmetry in the left breast resembles a cyst and is indeterminate. A targeted ultrasound is recommended and will immediately follow. Based on the Tyrer Cuzick model (a risk assessment model) the patients lifetime risk is 10.9% and he r 10 year risk is 8.2%. According to the ACR, ACS, and NCCN guidelines, an annual breast MRI exam stan ng with mammogram is recommended if the patients lifetime risk is 20% or greater. This exam was interpreted at Station ID: [id number]. NOTE: For mammograms, a report in lay terms will be sent to the patient. Approximately 15% of breast malignancies will not be visualized mammographically. In the management of a palpable breast mass, a negative mammogram must not discourage biopsy of a clinically suspicious lesion. Electronically Signed By: Jose Painting M.D. slc/:01/18/2022 13:14:30 ACR BI-RADS Category 0: Incomplete 3340F PARENCHYMAL PATTERN: (A) - The breast(s) demonstrate(s) scattered fibroglandular densities. BI-RADS CATEGORY: (0) - 0 Ultrasound [id number] Immediate follow-up LATERALITY: (B)
--- NOTE | 2022-01-21 10:04 | Ultrasound Report ---
LIMITED ULTRASOUND OF LEFT BREAST AND AXILLA: 01/18/2022 CLINICAL: Patient returns today to evaluate a focal asymmetry in the left breast. Comparison is made to exams dated: 01/18/2022 mammogram, 12/17/2021 mammogram, 07/30/2010 mammogram, an d 06/12/2007 mammogram - [facility]. Color flow and real-time ultrasound of the left breast 1 o'clock, and axilla regions were performed. Rider scale images of the real-time examination were reviewed. There is a 0.6 cm x 0.5 cm x 0.4 cm oval mass in the left breast at 1 o'clock in the retroareolar reg ion 1 cm from the nipple. This oval mass is hypoechoic. This correlates with mammography findings. Color flow imaging demonstrates that there is no vascularity present. This is new on mammogram. No significant abnormalities were seen sonographically in the left axilla. IMPRESSION: SUSPICIOUS OF MALIGNANCY New 0.6 cm x 0.5 cm x 0.4 cm oval mass in the left breast is at a low suspicion for malignancy. -An ultrasound guided biopsy is recommended. No enlarged left axillary lymph nodes. Exam findings were discussed with the patient. This exam was interpreted at Station ID: [id number]. Electronically Signed By: Jose Painting M.D. slc/:01/18/2022 13:20:11 Ultrasound BI-RADS: 4a Low suspicion for malignancy BI-RADS CATEGORY: (4a) - Low Susp Biopsy [id number] Immediate follow-up LATERALITY: (L)
== END 2022-01-18 12:20 | disposition home or self-care (01) ==
LOC: DI 12:19
PROVIDERS: ATTEND Registered Nurse
DX: N63.21 Unspecified lump in the left breast, upper outer quadrant (principal)

== ENCOUNTER 2022-01-28 09:01 | Outpatient (CLI) | payer MEDICARE, OTHER, MEDICAID ==
[~2022-01-28 09:01] MED LIST: LIDOCAINE 1%-EPI 1:100000 20 ML MDV ONE; lidocaine 1% 20 ML MDV ONE
[2022-01-28] MEDS ORDERED: lidocaine 1% 20 ML MDV SUBQ ONE (10:54)
[2022-01-28] MEDS ORDERED: LIDOCAINE 1%-EPI 1:100000 20 ML MDV SUBQ ONE (10:54)
--- NOTE | 2022-02-04 09:19 | Ultrasound Report ---
ULTRASOUND GUIDED BIOPSY LEFT BREAST USING VACUUM DEVICE: 01/28/2022 CLINICAL: Left breast mass. PATIENT CONSENT: Risks (minor bleeding, infection, vasovagal reaction and repeat procedure), benefits and alternatives were explained to the patient and written informed consent was obtained. Correlation is made to exams dated: 01/18/2022 ultrasound, 01/18/2022 mammogram, 12/17/2021 mammogram, 07/30/2010 mammogram, and 06/12/2007 mammogram - [facility]. An ultrasound guided biopsy using real-time ultrasound was attempted for the circumscribed oval lesio n located in the left breast at 1 o'clock anterior depth. This was described on the previous ultraso und report. The skin was prepped in the usual manner. Local anesthetic was administered to the acce ss site. Previously described oval lesion collapsed after needle penetration. The procedure was ter minated due to the abnormality being a cyst. IMPRESSION: ULTRASOUND GUIDED BIOPSY Ultrasound guided biopsy of the lesion in the left breast anterior depth was terminated. A follow-up ultrasound in 6 months is recommended to demonstrate stability. This exam was interpreted at Station ID: [id number]. Dereck Elkins M.D. jl/:02/01/2022 17:00:48 BI-RADS CATEGORY: () - Ultrasound [id number] 6 month follow-up LATERALITY: (B)
== END 2022-01-28 09:02 | disposition home or self-care (01) ==
LOC: DI 09:01
PROVIDERS: ATTEND Registered Nurse
DX: N60.02 Solitary cyst of left breast (principal)
CPT/HCPCS: 19083

== ENCOUNTER 2022-03-08 08:00 | Outpatient (CLI) | payer MEDICARE, OTHER, MEDICAID | END 2022-03-08 23:59 | disposition home or self-care (01) | LOC: LAB 08:00 | PROVIDERS: ATTEND Registered Nurse | DX: R31.9 Hematuria, unspecified (principal) | CPT/HCPCS: 87077; 87086; 87181 ==

== ENCOUNTER 2022-09-01 08:45 | Outpatient (CLI) | payer MEDICARE, OTHER, MEDICAID | END 2022-09-01 08:46 | disposition critical access hospital (66) | LOC: EMS 08:45 | DX: R41.0 Disorientation, unspecified (principal); R45.1 Restlessness and agitation | CPT/HCPCS: A0425; A0429 ==

== ENCOUNTER 2022-09-01 09:25 | Inpatient (IN) | payer MEDICARE, OTHER, MEDICAID ==
[2022-09-01 10:50] LABS: BASOPHILS # (AUTO) 0.1 10^3/uL (0.0-0.1); BASOPHILS % (AUTO) 0.7 %; EOSINOPHILS # (AUTO) 0.2 10^3/uL (0.0-0.7); HCT - HEMATOCRIT 47.8 % (37.0-47.0); HGB - HEMOGLOBIN 15.5 g/dL (12.0-16.0); LYMPHOCYTES # (AUTO) 1.8 10^3/uL (1.5-3.5); LYMPHOCYTES % (AUTO) 12.2 %; MEAN CORPUSCULAR HEMOGLOBIN 29.5 pg (27.0-31.0); MEAN CORPUSCULAR HGB CONC 32.4 g/dL (32.0-36.0); MEAN CORPUSCULAR VOLUME 90.9 fL (81.0-99.0); MONOCYTES % (AUTO) 6.9 %; NEUTROPHILS # (AUTO) 11.4 10^3/uL (1.5-6.6); NEUTROPHILS % (AUTO) 78.9 %; PLT - PLATELET COUNT 249 10^3/uL (130-450); RED BLOOD COUNT 5.26 10^6/uL (4.20-5.40); RED CELL DISTRIBUTION WIDTH 14.1 % (12.0-15.0); WHITE BLOOD COUNT 14.4 x10^3/uL (4.8-10.8)
[2022-09-01 10:56] LABS: PT - PROTHROMBIN TIME 11.4 secs (9.9-12.6)
[2022-09-01 11:03] LABS: ALBUMIN/GLOBULIN RATIO 1.2 (1.0-2.2); BILIRUBIN,TOTAL 0.8 mg/dL (0.2-1.0); CREATININE 0.8 mg/dL (0.4-1.0); POTASSIUM 3.9 mmol/L (3.5-5.0); TOTAL PROTEIN 7.4 g/dL (6.7-8.2)
--- NOTE | 2022-09-01 11:07 | XRAY Report ---
PROCEDURE: Chest 1 View X-Ray INDICATIONS: chest pain TECHNIQUE: One view of the chest was acquired. COMPARISON: None. FINDINGS: Surgical changes and devices: Spinal stabilization hardware is seen. Lungs and pleura: No pleural effusions or pneumothorax. Lungs are clear. Mediastinum: Mediastinal contours appear normal. Heart size is normal. Bones and chest wall: No suspicious bony lesions. Overlying soft tissues appear unremarkable. IMPRESSION: No acute process. Reviewed by: Colten Olivares MD on 09/01/2022 11:05 AM PDT Approved by: Colten Olivares MD on 09/01/2022 11:05 AM PDT Station ID: [id number]
[2022-09-01] MEDS ORDERED: iohexoL-300 100 ML VIAL ONE (11:25)
[2022-09-01] MEDS ORDERED: iohexoL-300 100 ML VIAL IVP ONE (11:50)
--- NOTE | 2022-09-01 12:11 | ED Physician Documentation ---
PD HPI FOCAL NEURO - Stated complaint Stated Complaint: ALOC - Chief complaint Chief Complaint: Neuro - History obtained from History obtained from: Patient - History of Present Illness Timing - onset: Today Timing - duration: Days (1) Timing - details: Constant, Still present in ED Time of symptom onset unknown: Time of onset unknown Severity of deficit: Moderate Weakness: Leg, Left Associated symptoms: Fall (yesterday). No: Head injury, Neck pain, Back pain, Fever Contributing factors: negative: Anticoagulated, Atrial fibrillation, Prosthetic heart valve Baseline status: positive: Mildly confused, Dementia Similar symptoms before: Has not had sx before Recently seen: Not recently seen - Additional information Additional information: 71-year-old female with a history of chronic back pain, dementia, Hypertension and sleep apnea Has a caregiver who is with her at her home until about 1 PM yesterday. She was apparently acting normally at that time. She does have some mild confusion at baseline. Today the patient is unable to walk and has difficulty getting her words out and articulating her words.The patient did not feel that she was sick prior to this.She is accompanied here today by grandchildren and a son. Review of Systems Unable to obtain: Dementia PD PAST MEDICAL HISTORY - Past Medical History Cardiovascular: Hypertension Respiratory: None Neuro: TIA GI: Ulcers Derm: None - Past Surgical History Past Surgical History: Yes General: Appendectomy HEENT: Tonsil/Adenoidectomy - Present Medications Home Medications: Ambulatory Orders Medication Instructions Recorded Confirmed Baclofen [Lioresal] 30 mg PO TID 09/23/12 04/05/13 Levothyroxine Sodium [Levothroid] 200 mcg PO DAILY 09/23/12 04/05/13 Metoprolol Succinate [Toprol Xl] 100 mg PO BID 09/23/12 04/05/13 Sertraline HCl [Zoloft] 200 mg PO DAILY 09/23/12 04/05/13 lisinopriL [Lisinopril] 40 mg PO DAILY 09/23/12 04/05/13 tiZANidine [Zanaflex] 8 mg PO Q8H 09/23/12 04/05/13 diazePAM [Valium] 5 mg PO TID PRN #15 tablet 09/24/12 04/05/13 HYDROcod/ACETAM 5/325 [Vicodin 1 - 2 ea PO Q6H PRN 04/05/13 04/05/13 5/325] HYDROcod/ACETAM 5/325 [Vicodin 1 - 2 ea PO Q6H PRN #15 tablet 04/05/13 5/325] Liothyronine Sodium [Cytomel] 5 mcg PO DAILY 04/05/13 04/05/13 Ondansetron Odt [Zofran] 4 mg TL Q6H PRN #10 tablet 04/05/13 Albuterol Sulf [Ventolin Hfa 1 - 2 puffs INH Q4HR PRN #1 inhaler 01/27/18 Inhaler] predniSONE [Prednisone] 60 mg PO DAILY 5 Days #15 tablet 01/27/18 - Allergies Allergies/Adverse Reactions: Allergies Allergy/AdvReac Type Severity Reaction Status Date / Time No Known Drug Allergies Allergy Verified 01/27/18 11:31 - Social History Does the pt smoke?: No Smoking Status: Never smoker Does the pt drink ETOH?: No Does the pt have substance abuse?: No - Immunizations Immunizations are current?: Yes - POLST Patient has POLST: No PD ED PE NORMAL - Vitals Vital signs reviewed: Yes (tachypneic and hypertensive ) - General General: No acute distress, Well developed/nourished, Other (Speech latency and delay in execution of motor commands are present.) - HEENT HEENT: Atraumatic, PERRL, EOMI, Other (dry mucous membranes ) - Neck Neck: Supple, no meningeal sign, No bony TTP - Cardiac Cardiac: RRR, No murmur - Respiratory Respiratory: No respiratory distress, Clear bilaterally - Abdomen Abdomen: Normal bowel sounds, Soft, Non tender, Non distended, No organomegaly - Back Back: No CVA TTP, No spinal TTP - Derm Derm: Normal color, Warm and dry, No rash - Extremities Extremities: No deformity, No edema - Neuro Neuro: ship cleaner 2-12 intact, Other (left leg weakness, speech articulation is borderline and word serching is present. ) Eye Opening: Spontaneous Motor: Obeys Commands Verbal: Confused GCS Score: 14 - Psych Psych: Normal mood, Normal affect NIHSS - Time Time: 09:45 - Level of Consciousness Level of consciousness: (1) Not alert, but arousable by minor stimulation to obey, or answer LOC Questions: (1) Answers one Q correctly LOC Commands: (0) Performs both correctly - Gaze Best Gaze: (0) Normal - Visual Visual: (0) No loss - Facial Palsy Facial Palsy: (0) Normal, symmetrical movement - Motor Arms (both separate) Motor Arm (right): (0) No drift Motor Arm (left): (0) No drift - Motor Legs (both separate) Motor Leg (right): (0) No drift Motor Leg (left): (1) Drift - Limb Ataxia Limb Ataxia: (0) Absent - Sensory Sensory: (0) Normal - Best Language Best Language: (1) [id number] - Dysarthria Dysarthria: (1) [id number] dysarthria - Extinction and Inattention (formally neg Extinction and inattention: (1) Visual,tactile,auditory,spatial, or personal inattention - Total Score/Results Total Score/Result: 6 Results - Vitals Vitals: Vital Signs - 24 hr 09/01/22 09/01/22 09/01/22 09:28 10:03 10:33 Temperature 36.5 C Heart Rate 90 62 60 Respiratory 28 H 20 20 Rate Blood Pressure 158/94 H 176/141 H 149/92 H O2 Saturation 94 95 95 If not protocol 2 : Oxygen Flow, liters/minute 09/01/22 09/01/22 09/01/22 11:01 12:11 13:06 Temperature Heart Rate 62 72 68 Respiratory 18 20 22 Rate Blood Pressure 120/95 H 120/65 113/67 O2 Saturation 95 95 93 If not protocol 2 2 : Oxygen Flow, liters/minute 09/01/22 09/01/22 09/01/22 13:58 14:03 14:31 Temperature Heart Rate 56 L 65 86 Respiratory 18 20 16 Rate Blood Pressure 113/87 H 156/82 H 156/82 H O2 Saturation 94 96 95 If not protocol 2 2 : Oxygen Flow, liters/minute Oxygen O2 Source Room air Oxygen Flow Rate 2 - EKG (time done) 1049 EKG releavant findings:: EKG personally interpreted by author of this note. Relevant findings are: Rate: Rate (enter#) (84) Rhythm: Atrial fibrillation Intervals: LBBB (incomplete) QRS: Normal Ischemia: Normal ST segments Compare to prior EKG: Changed from prior EKG Computer interpretation: Disagree with computer (I am not certain about this being afib. We will repeat the study with a smooth baseline. ) - Labs Labs: Laboratory Tests 09/01/22 09/01/22 09/01/22 09:34 10:44 10:44 WBC 14.4 H RBC 5.26 Hgb 15.5 Hct 47.8 H MCV 90.9 MCH 29.5 MCHC 32.4 RDW 14.1 Plt Count 249 MPV 10.0 Neut # (Auto) 11.4 H Lymph # (Auto) 1.8 Nolan # (Auto) 1.0 Eos # (Auto) 0.2 Baso # (Auto) 0.1 Absolute Nucleated RBC 0.00 Nucleated RBC % 0.0 PT INR Sodium 144 Potassium 3.9 Chloride 109 Carbon Dioxide 25 Anion Gap 10.0 BUN 19 Creatinine 0.8 Estimated GFR (MDRD) 71 L Glucose 98 POC Whole Bld Glucose 108 H Calcium 9.0 Total Bilirubin 0.8 AST 20 ALT 18 Alkaline Phosphatase 68 Total Protein 7.4 Albumin 4.0 Globulin 3.4 Albumin/Globulin Ratio 1.2 Lipase 27 09/01/22 10:44 WBC RBC Hgb Hct MCV MCH MCHC RDW Plt Count MPV Neut # (Auto) Lymph # (Auto) Nolan # (Auto) Eos # (Auto) Baso # (Auto) Absolute Nucleated RBC Nucleated RBC % PT 11.4 INR 1.0 Sodium Potassium Chloride Carbon Dioxide Anion Gap BUN Creatinine Estimated GFR (MDRD) Glucose POC Whole Bld Glucose Calcium Total Bilirubin AST ALT Alkaline Phosphatase Total Protein Albumin Globulin Albumin/Globulin Ratio Lipase - Rads (name of study) CTA head Relevant Findings:: Prelim report reviewed (Impression: No acute process involving the arterial tree of the head.), EMP independent interpretation of test CTA neck Relevant Findings:: Prelim report reviewed (Impression no acute process involving the arterial tree of the neck), EMP independent interpretation of test Chest Relevant Findings:: Prelim report reviewed, EMP independent interpretation of test Procedures - IVC sono (time) 0940 Bedside IVC sono: IVC measures (cm) (1.65), IVC collapsed c insp (cm) (complete), Dehydration (mild est < 1 liter) PD Medical Decision Making - ED course Complexity details: reviewed old records, reviewed results, re-evaluated patient, considered differential, d/w patient, d/w family Reviewed Lab Results: We reviewed a complete blood count showing a elevated white blood cell count of 14.4 with a normal hemoglobin and hematocrit coagulation parameters were normal chemistry showed normal electrolytes normal kidney and liver function normal glucose urine is pending. These laboratory results are mostly benign and do not reflect a specific acute process. ED course: 71-year-old female with a history of sleep apnea hypertension chronic back pain and dementia appears to have had an insult and on examination appears to have weakness to the left leg and some difficulty with her speech. Her symptoms have not resolved. She has symptoms greater than 24 hours and her clinical presentation is consistent with CVA. We did do angios of the head and neck which were unremarkable. We did do an electrocardiogram and the patient arrived here and there was a lot of background noise on the electrocardiogram and I am reluctant to say that she has atrial fibrillation. She has a regular rate P waves were not obvious. We will continue to monitor the patient repeat her electrocardiogram. The patient is administered an aspirin and a liter of fluid. Her family is present at the bedside grandchildren and a son. Their questions have been answered and we have elected to place the patient in the hospital for poststroke care. She will need monitoring and an MRI of the brain which is not available today. Departure - Departure Disposition: [address] [facility] DC/Xfer Clinical Impression: Cerebrovascular accident (CVA) Qualifiers: CVA mechanism: unspecified Qualified Code(s): I63.9 - Cerebral infarction, unspecified Condition: Serious
--- NOTE | 2022-09-01 12:16 | CT Report ---
PROCEDURE: ANGIO HEAD W/WO INDICATIONS: L leg weakness altered LOC CONTRAST: 80ml omni 300 TECHNIQUE: Precontrast 4.5 mm thick angled axial sections acquired from the foramen magnum to the vertex. Afte r the administration of intravenous contrast, 1 mm thick sections acquired through the [place] of [place] is. Postcontrast 4.5 mm thick sections then re-acquired from the foramen magnum to the vertex. 3-di mensional lukhfcx-ctlzjzqfu-zehqzkwefd (MIP) and/or volume rendering reformats were acquired of the c entral intracranial vasculature. For radiation dose reduction, the following was used: automated ex posure control, adjustment of mA and/or kV according to patient size. COMPARISON: None FINDINGS: Image quality: Excellent. Anterior circulation: Intracranial internal carotid arteries are normal in size and flow. The flow within the paired anterior cerebral arteries is normal and symmetric. The flow within the middle cer ebral arteries is normal and symmetric. The anterior communicating artery is seen. No aneurysms are seen. Posterior circulation: Visualized portions of the vertebral arteries demonstrate normal caliber, and join to form a normal appearing basilar artery. Flow within the posterior cerebral arteries is norm al and symmetric. No aneurysms are seen. CSF spaces: Ventricles are normal in size and shape. Basal cisterns are patent. No extra-axial flu id collections. Brain: No midline shift. No intracranial bleeds or masses. Rider-white matter interface appears int act. Skull and face: Calvarium and facial bones appear intact, without suspicious lesions. Sinuses: Visualized sinuses and mastoids are clear. IMPRESSION: No acute process involving the arterial tree of the head. Reviewed by: Colten Olivares MD on 09/01/2022 12:15 PM PDT Approved by: Colten Olivares MD on 09/01/2022 12:15 PM PDT Station ID: [id number]
--- NOTE | 2022-09-01 12:18 | CT Report ---
PROCEDURE: ANGIO NECK W INDICATIONS: L leg weakness altered LOC CONTRAST: 80ml omni 300 TECHNIQUE: After the administration of intravenous contrast, 1.5 mm axial sections acquired from the aortic arch to the [place] of [place]. Coronal 3-D maximum intensity projection (MIP) and/or volume rendering ref ormats were then performed. For radiation dose reduction, the following was used: automated exposur e control, adjustment of mA and/or kV according to patient size. COMPARISON: None. FINDINGS: Image quality: Partially degraded by metallic artifact. Carotid system: The great vessels demonstrate a conventional anatomy as they arise from the aortic a rch. The origins of the common carotid arteries appear patent. The common carotid arteries demonstr ate normal calibers and courses. The bifurcation regions appear normal bilaterally. The internal ca rotid arteries demonstrate normal caliber and course. Posterior circulation: The origins of the vertebral arteries appear patent. The more superior porti ons of the vertebral arteries are not well seen secondary to metallic artifact but as visualized demo nstrate normal course and caliber. They join to form a normal appearing basilar artery. Soft tissues: Visualized neck soft tissues demonstrate no suspicious abnormalities. The thyroid is normal in size and there are no incidental findings. Bones: No suspicious bony lesions. Visualized cervical spine appears normally aligned. IMPRESSION: No acute process involving the arterial tree of the neck. The estimate of stenosis included in the report of the imaging study was calculated using the NASCET method CLINICAL RECOMMENDATION STATEMENTS: In patients <35 years with an ITN detected on CT, MRI, or extrathyroidal ultrasound, the Committee re commends further evaluation with dedicated thyroid ultrasound if the nodule is "e1 cm and has no susp icious imaging features, and if the patient has normal life expectancy. In patients "e35 years with an ITN detected on CT, MRI, or extrathyroidal ultrasound, the Committee r ecommends further evaluation with dedicated thyroid ultrasound if the nodule is "e1.5 cm and has no s uspicious imaging features, and if the patient has normal life expectancy. (ACR, 2014) Reviewed by: Colten Olivares MD on 09/01/2022 12:16 PM PDT Approved by: Colten Olivares MD on 09/01/2022 12:16 PM PDT Station ID: [id number]
[2022-09-01] MEDS ORDERED: SODIUM CHLORIDE 0.9% 1,000 ML IV STA (12:34)
[2022-09-01] MEDS ORDERED: ASPIRIN 325 MG TABLET PO STA (15:02)
[2022-09-01 15:04] LABS: BILIRUBIN,URINE NEGATIVE (NEGATIVE); GLUCOSE, URINE (UA) NEGATIVE (NEGATIVE); KETONES,URINE (UA) NEGATIVE (NEGATIVE); LEUKOCYTE ESTERASE, URINE NEGATIVE (NEGATIVE); NITRITE,URINE NEGATIVE (NEGATIVE); OCCULT BLOOD,URINE NEGATIVE (NEGATIVE); PROTEIN,URINE NEGATIVE (NEGATIVE); UROBILINOGEN,URINE 0.2 (NORMAL) E.U./dL (NORMAL)
[2022-09-01 15:20] LABS: CLARITY,URINE CLOUDY (CLEAR)
[2022-09-01 15:22] LABS: BACTERIA,URINE None Seen /HPF (None Seen); RBC,URINE None Seen /HPF (0-5); SQUAMOUS EPITHELIAL CELL,UR MANY Squamous (<= Few); WBC,URINE 0-3 /HPF (0-5)
[2022-09-01 15:34] LABS: B. PARAPERTUSSIS- RESP PCR PAN NOT DETECTED; B. PERTUSSIS- RESP PCR PANEL NOT DETECTED; C. PNEUMONIAE- RESP PCR PANEL NOT DETECTED; CORONAVIRUS 229E-RESP PCR NOT DETECTED; CORONAVIRUS HKU1-RESP PCR NOT DETECTED; CORONAVIRUS NL63-RESP PCR NOT DETECTED; CORONAVIRUS OC43-RESP PCR NOT DETECTED; HUMAN METAPNEUMOVIRUS NOT DETECTED; INFLUENZA A- RESP PCR PANEL NOT DETECTED; INFLUENZA B - RESP PCR PANEL NOT DETECTED; M. PNEUMONIAE- RESP PCR PANEL NOT DETECTED; PARAINFLUENZA VIRUS 1 NOT DETECTED; PARAINFLUENZA VIRUS 2 NOT DETECTED; PARAINFLUENZA VIRUS 3 NOT DETECTED; PARAINFLUENZA VIRUS 4 NOT DETECTED; RHINOVIRUS/ENTEROVIRUS NOT DETECTED; RSV- RESP PCR PANEL NOT DETECTED; SARS-CoV-2 -RESP PCR PANEL NOT DETECTED
[2022-09-01] MEDS ORDERED: SODIUM CHLORIDE FLUSH 0.9% 10 ML SYRINGE IVP PRN (16:11)
[2022-09-01] MEDS ORDERED: ONDANSETRON ODT 4 MG TABLET TL PRN (16:11)
--- NOTE | 2022-09-01 16:21 | HISTORY & PHYSICAL EXAMINATION ---
Chief Complaint - Chief Complaint Chief Complaint: Altered mental status History of Present Illness - Admitted From Admitted From:: Emergency room - History Obtained From Records Reviewed: Yes History obtained from: patient and daughter in law - History of Present Illness HPI Comment/Other: This is a 71-year-old female with past medical history significant for dementia, hypertension history of sleep apnea along with chronic back pain who does have a caregiver come to her house usually daily. Last known normal was yesterday evening and today caregiver could not get in her house about 8 AM. She was found significantly confused on the floor she was having some word finding difficulties and she had bilateral akathisia as she does have left leg weakness but this is chronic.Patient denies any new medications. She does use and smoke marijuana daily but notes that she gets it from a dispensary in [place]. She denies any other drug use. She denies any new medications.CTA of head and neck revealed no acute findings per ER MD. History - Past Medical History Cardiovascular: reports: Hypertension Respiratory: reports: None Neuro: reports: TIA GI: reports: Ulcers Derm: reports: None MRSA Hx?: No - Past Surgical History General: reports: Appendectomy HEENT: reports: Tonsil/Adenoidectomy - Family & Social History Living arrangement: At home Living Situation: With caregiver(s) - Substance History Use: Uses substance without health or social issues: Cannabis Tobacco Details: Other (Smokes cigarettes several decades ago) - POLST Patient has POLST: No POLST Status: Full Code Meds/Allgy - Home Medications Home Medications: Ambulatory Orders Medication Instructions Recorded Confirmed Baclofen [Lioresal] 30 mg PO TID 09/23/12 04/05/13 Levothyroxine Sodium [Levothroid] 200 mcg PO DAILY 09/23/12 04/05/13 Metoprolol Succinate [Toprol Xl] 100 mg PO BID 09/23/12 04/05/13 Sertraline HCl [Zoloft] 200 mg PO DAILY 09/23/12 04/05/13 lisinopriL [Lisinopril] 40 mg PO DAILY 09/23/12 04/05/13 tiZANidine [Zanaflex] 8 mg PO Q8H 09/23/12 04/05/13 diazePAM [Valium] 5 mg PO TID PRN #15 tablet 06/06/13 12/16/13 HYDROcod/ACETAM 5/325 [Vicodin 1 - 2 ea PO Q6H PRN 04/05/13 04/05/13 5/325] HYDROcod/ACETAM 5/325 [Vicodin 1 - 2 ea PO Q6H PRN #15 tablet 04/05/13 5/325] Liothyronine Sodium [Cytomel] 5 mcg PO DAILY 04/05/13 04/05/13 Ondansetron Odt [Zofran] 4 mg TL Q6H PRN #10 tablet 04/05/13 Albuterol Sulf [Ventolin Hfa 1 - 2 puffs INH Q4HR PRN #1 inhaler 01/27/18 Inhaler] predniSONE [Prednisone] 60 mg PO DAILY 5 Days #15 tablet 01/27/18 - Allergies Allergies/Adverse Reactions: Allergies Allergy/AdvReac Type Severity Reaction Status Date / Time No Known Drug Allergies Allergy Verified 01/27/18 11:31 Review of Systems - Musculoskeletal Musculoskeletal: reports: Other (Chronic left leg weakness with some muscle atrophy) - Neurological Neurological: reports: Pre-existing deficit (See musculoskeletal section) - All Other Systems All Other Systems: reports: Reviewed and negative Prior Level of Functionality: Lives alone but does have caregivers in daily Exam - Vital Signs Vital Signs: Vital Signs x48h Temp Pulse Resp BP Pulse Ox O2 Flow Rate 09/01/22 16:00 18 138/65 H 95 2 09/01/22 15:10 67 18 138/65 H 95 2 09/01/22 14:31 86 16 156/82 H 95 09/01/22 14:03 65 20 156/82 H 96 2 09/01/22 13:58 56 L 18 113/87 H 94 2 09/01/22 13:06 68 22 113/67 93 09/01/22 12:11 72 20 120/65 95 2 09/01/22 11:01 62 18 120/95 H 95 2 09/01/22 10:33 60 20 149/92 H 95 09/01/22 10:03 62 20 176/141 H 95 2 09/01/22 09:28 36.5 C 90 28 H 158/94 H 94 - Physical Exam General Appearance: positive: No acute distress Eyes Bilateral: positive: Normal inspection Neck: positive: Nml inspection Respiratory: positive: No respiratory distress, Breath sounds nml Cardiovascular: positive: Regular rate & rhythm, No murmur Abdomen: positive: Non-tender Back: positive: Nml inspection Skin: positive: No rash Extremities: positive: Non-tender Neurologic/Psychiatric: positive: Slurred/abnml speech, Other (Patient has some abnormal movements bilaterally of arms face appears to be a type of akathisia. Does to answer some questions slow to answer at times although at times she does seem to give the appropriate answer.) Conclusion/Plan - Problem List (1) Acute encephalopathy Conclusion/Plan: Unclear etiology at this time. Possibly related to atypical type CVA with some akathisia's and dysarthria, expressive aphasia. CTA of head and neck revealed no acute findings. MRI without contrast is scheduled for tomorrow. Urine tox screen is ordered. Also check TSH B12 and folate. Transfer text (2) Akathisia Conclusion/Plan: Acute with no clear etiology. Check urine tox screen. (3) Cannabis use disorder Conclusion/Plan: Above acute findings possibly related to marijuana. Although she denies change in her usual use pattern and says she goes to [facility] dispensary. (4) Dementia Qualifiers: Dementia type: unspecified type Dementia severity: moderate (5) Hypertension Conclusion/Plan: Monitor blood pressure. Med reconciliation needs to be completed by pharmacy./Nursing. Qualifiers: Hypertension type: primary hypertension Qualified Code(s): I10 - Essential (primary) hypertension - Lab Results Lab results reviewed: Yes Edmundo Bones: 09/01/22 10:44 09/01/22 10:44 - EKG Results EKG Interpreted Independently: Yes
[2022-09-01 16:48] LABS: THYROID STIMULATING HORMONE 2.3 uIU/mL (0.34-5.60)
[2022-09-01 16:59] LABS: FOLATE 10.43 ng/mL (5.90 - >24.8)
[2022-09-01 18:39] LABS: MUDS CUTOFF CONCENTRATIONS CUTOFF CONC BELOW:
[2022-09-01 18:57] LABS: AMPHETAMINE SCREEN,URINE NEGATIVE (NEGATIVE); BARBITURATE SCREEN,UR NEGATIVE (NEGATIVE); BENZODIAZEPINES SCREEN, URINE POSITIVE (NEGATIVE); COCAINE SCREEN URINE NEGATIVE (NEGATIVE); METHADONE SCREEN, URINE NEGATIVE (NEGATIVE); METHAMPHETAMINES SCREEN, URINE NEGATIVE (NEGATIVE); OPIATE SCREEN, URINE NEGATIVE (NEGATIVE); OXYCODONE SCREEN, URINE NEGATIVE (NEGATIVE); PROPOXYPHENE SCREEN, URINE NEGATIVE (NEGATIVE); THC CANNABINOID SCREEN, URINE POSITIVE (NEGATIVE); TRICYCLIC ANTIDEPRESSANT,URINE POSITIVE (NEGATIVE)
[2022-09-01] MEDS: SODIUM CHLORIDE FLUSH 0.9% 10 ML SYRINGE IVP SCH (19:04)
[2022-09-01] MEDS: SODIUM CHLORIDE 0.9% 1,000 ML IV SCH (19:04)
[2022-09-01] MEDS: ATORVASTATIN 40 MG TABLET PO SCH (21:19)
[2022-09-02] MEDS: SODIUM CHLORIDE FLUSH 0.9% 10 ML SYRINGE IVP SCH ×3 (04:06→18:12)
[2022-09-02] MEDS: SODIUM CHLORIDE 0.9% 1,000 ML IV SCH ×2 (05:15→19:46)
[2022-09-02] MEDS: ASPIRIN CHEW 81 MG TABLET PO SCH (09:05)
--- NOTE | 2022-09-02 13:26 | MRI Report ---
PROCEDURE: BRAIN WO INDICATIONS: acute encephalopathy TECHNIQUE: Noncontrast axial T1 spin echo, axial T2 fast spin echo, sagittal and axial FLAIR, coronal T2 fast sp in echo, axial gradient echo, axial diffusion and ADC through the brain. COMPARISON: None. FINDINGS: Image quality: Partially degraded by motion artifact. CSF Spaces: Basal cisterns are patent. No extra-axial fluid collections. Ventricles are normal in size and shape. Brain: No intracranial masses or hemorrhage. Rider/white matter interface is normal. Mild diffuse c erebral volume loss. Mild degree of patchy high FLAIR signal within the periventricular and subcortic al white matter. Brainstem appears normal. Diffusion-weighted images demonstrate no acute ischemic i nsult. No chronic ischemic insults. Normal intravascular flow voids are present. Skull and face: Calvarium has normal marrow signal. Orbits appear normal. Sinuses: Sinuses and mastoids are clear. IMPRESSION: 1. No acute process. No recent infarct. 2. Mild volume loss and small vessel ischemic disease. Reviewed by: Colten Olivares MD on 09/02/2022 1:25 PM PDT Approved by: Colten Olivares MD on 09/02/2022 1:25 PM PDT Station ID: [id number]
--- NOTE | 2022-09-02 16:07 | PHARMACY PROGRESS NOTE ---
- Best Possible Medication History Admit Date and Time: 09/02/22 1108 Processed by: Pharmacy Medication History completed: Yes Patient Interview: Completed Secondary Source(s): Physician records, Insurance records Patient states she manages her own medications at home (does not use a pillbox, just has her morning med bottles and evening med bottles). She was unsure of her medications or their doses. Med list updated using list faxed from [facility] along with insurance information. As the person ultimately responsible for medication therapy, providers are able to order a medication from an existing home medication list in [facility] via the "Reconcile Routine" prior to Confirmation of that medication by application support intern. Such practice is discouraged except when the physician, in their clinical judgment, deems that a medical need exists for a medication without regard to previous use.
--- NOTE | 2022-09-02 16:31 | PROVIDER PROGRESS NOTE ---
Assessment/Plan - Problem List (1) Acute encephalopathy Assessment/Plan: Patient has improved and is fairly close to baseline. Suspect secondary to mistake made with her medication she uses at home and/or cannabis use. This is reviewed with patient and [id number] at bedside.Patient had MRI without c ontrast which revealed no acute abnormalities. Urine tox screen is positive for benzodiazepines tricyclics and cannabinoids. TSH B12 and folate were normal. (2) Akathisia Assessment/Plan: Thought to be secondary to medication mistake and or cannabis use. Urine tox screen revealed positive for benzodiazepines tricyclics and cannabinoids. (4) Dementia Qualifiers: Dementia type: unspecified type Dementia severity: moderate Assessment/Plan: Patient does have mild to moderate dementia per family at baseline. (5) Hypertension Qualifiers: Hypertension type: primary hypertension Qualified Code(s): I10 - Essential (primary) hypertension - Current Meds Current Meds: Current Medications Generic Name Dose Route Start Last Admin Trade Name Freq PRN Reason Stop Dose Admin Aspirin 162 mg 09/02/22 09:00 09/02/22 09:05 Aspirin Chew 81 Mg Tablet PO 162 mg DAILY SYBIL Administration Atorvastatin Calcium 80 mg 09/01/22 21:00 09/01/22 21:19 Atorvastatin 40 Mg Tablet PO 80 mg QPM SYBIL Administration Sodium Chloride 1,000 mls @ 100 mls/hr 09/01/22 17:00 09/02/22 14:59 Normal Saline 0.9% IV 100 mls/hr .Q10H SYBIL Infusion Sodium Chloride 10 ml 09/01/22 17:00 09/02/22 09:05 Sodium Chloride Flush 0.9% 10 Ml Syringe IVP Not Given 0100,0900,1700 SYBIL - Lab Result Fish Bone Diagrams: 09/01/22 10:44 09/01/22 10:44 - Additional Planning My Orders: My Active Orders 09/01/22 16:02 Blood Glucose POC [RC] 0000,0600,1200,1800 Straight Catheter Insertion [RC] PRN Clinical Swallow Eval w/Modified ST [ST] Routine 09/01/22 16:11 Activity Orders [RC] Q2HR IO [RC] IOSHIFT Incentive Spirometry - RT [RC] TID Initiate Bowel Care Protocol [RC] .protocol Initiate Line Care Protocol [RC] QSHIFT Initiate Personal Care Protoco [RC] .protocol Oxygen Therapy [RC] .PRN Telemetry (24 Hour) [RC] Q4HR Vital Signs [RC] Q4HR Ondansetron Odt [Zofran Odt] 4 mg TL Q6HR PRN Sodium Chloride Flush 0.9% [Normal Saline Flush 0.9%] 10 ml IVP PRN PRN Code Status [OTHERS] Routine Condition of Patient [OTHERS] Routine DVT Prophylaxis [OTHERS] Routine 09/01/22 16:13 SCDs [RC] QSHIFT 09/01/22 17:00 Sodium Chloride 0.9% [Normal Saline 0.9%] 1,000 ml IV 100 mls/hr Sodium Chloride Flush 0.9% [Normal Saline Flush 0.9%] 10 ml IVP 0100,0900,1700 09/01/22 21:00 Atorvastatin [Lipitor] 80 mg PO QPM 09/02/22 Evaluate and Treat OT [OT] Routine 09/02/22 09:00 Aspirin Chewable [St Ryley Aspirin] 162 mg PO DAILY 09/02/22 Dinner Dysphagia - Minced and Moist [DIET] 09/02/22 17:00 Multivitamin W/Minerals [Theragran M] 1 tab PO DAILYWM Objective Vital Signs: Vital Signs - 24 hr 09/01/22 09/01/22 09/01/22 16:39 18:00 21:05 Temperature 36.4 C L 36.6 C Heart Rate 56 L Heart Rate [ 73 89 Brachial] Respiratory 14 20 24 Rate Blood Pressure 138/65 H Blood Pressure 117/63 132/81 H [Right Brachial artery] O2 Saturation 96 97 96 09/02/22 09/02/22 09/02/22 00:28 04:48 09:00 Temperature 36.3 C L 36.6 C 36.8 C Heart Rate Heart Rate [ 75 78 76 Brachial] Respiratory 24 20 20 Rate Blood Pressure Blood Pressure 141/84 H 145/80 H 155/76 H [Right Brachial artery] O2 Saturation 93 93 96 09/02/22 09/02/22 09/02/22 10:00 13:00 14:55 Temperature 36.6 C 36.5 C 36.6 C Heart Rate Heart Rate [ 73 81 87 Brachial] Respiratory 19 19 16 Rate Blood Pressure Blood Pressure 165/75 H 152/72 H 151/80 H [Right Brachial artery] O2 Saturation 93 93 95 Oxygen O2 Source Room air Oxygen Flow Rate 2 I&O (Last 24 Hrs): Intake and Output Totals x24h 08/31/22 09/01/22 09/02/22 23:59 23:59 23:59 Intake Total 9662.379 7853.667 Output Total 2100 Balance 1533.333 -783.333 - Results Results: Laboratory Results WBC 14.4 x10^3/uL (4.8-10.8) H 09/01/22 10:44 RBC 5.26 10^6/uL (4.20-5.40) 09/01/22 10:44 Hgb 15.5 g/dL (12.0-16.0) 09/01/22 10:44 Hct 47.8 % (37.0-47.0) H 09/01/22 10:44 MCV 90.9 fL (81.0-99.0) 09/01/22 10:44 MCH 29.5 pg (27.0-31.0) 09/01/22 10:44 MCHC 32.4 g/dL (32.0-36.0) 09/01/22 10:44 RDW 14.1 % (12.0-15.0) 09/01/22 10:44 Plt Count 249 10^3/uL (130-450) 09/01/22 10:44 MPV 10.0 fL (7.9-10.8) 09/01/22 10:44 Neut # (Auto) 11.4 10^3/uL (1.5-6.6) H 09/01/22 10:44 Lymph # (Auto) 1.8 10^3/uL (1.5-3.5) 09/01/22 10:44 [place] # (Auto) 1.0 10^3/uL (0.0-1.0) 09/01/22 10:44 Eos # (Auto) 0.2 10^3/uL (0.0-0.7) 09/01/22 10:44 Baso # (Auto) 0.1 10^3/uL (0.0-0.1) 09/01/22 10:44 Absolute Nucleated RBC 0.00 x10^3/uL 09/01/22 10:44 Nucleated RBC % 0.0 /100WBC 09/01/22 10:44 PT 11.4 secs (9.9-12.6) 09/01/22 10:44 INR 1.0 (0.8-1.2) 09/01/22 10:44 Sodium 144 mmol/L (135-145) 09/01/22 10:44 Potassium 3.9 mmol/L (3.5-5.0) 09/01/22 10:44 Chloride 109 mmol/L (101-111) 09/01/22 10:44 Carbon Dioxide 25 mmol/L (21-32) 09/01/22 10:44 Anion Gap 10.0 (6-13) 09/01/22 10:44 BUN 19 mg/dL (6-20) 09/01/22 10:44 Creatinine 0.8 mg/dL (0.4-1.0) 09/01/22 10:44 Estimated GFR (MDRD) 71 (>89) L 09/01/22 10:44 Glucose 98 mg/dL (70-100) 09/01/22 10:44 POC Whole Bld Glucose 142 mg/dL (70 - 100) H 09/02/22 11:25 Calcium 9.0 mg/dL (8.5-10.3) 09/01/22 10:44 Total Bilirubin 0.8 mg/dL (0.2-1.0) 09/01/22 10:44 AST 20 IU/L (10-42) 09/01/22 10:44 ALT 18 IU/L (10-60) 09/01/22 10:44 Alkaline Phosphatase 68 IU/L (42-121) 09/01/22 10:44 Troponin I High Sens 9.5 ng/L (2.3-14.8) 09/01/22 16:10 Total Protein 7.4 g/dL (6.7-8.2) 09/01/22 10:44 Albumin 4.0 g/dL (3.2-5.5) 09/01/22 10:44 Globulin 3.4 g/dL (2.1-4.2) 09/01/22 10:44 Albumin/Globulin Ratio 1.2 (1.0-2.2) 09/01/22 10:44 Lipase 27 U/L (22-51) 09/01/22 10:44 Vitamin B12 250 pg/mL (180-914) 09/01/22 16:10 Folate 10.43 ng/mL (5.90 - >24.8) 09/01/22 16:10 TSH 2.30 uIU/mL (0.34-5.60) 09/01/22 16:10 Urine Color YELLOW 09/01/22 14:55 Urine Clarity CLOUDY (CLEAR) 09/01/22 14:55 Urine pH 6.0 PH (5.0-7.5) 09/01/22 14:55 Ur Specific [place] 1.020 (1.002-1.030) 09/01/22 14:55 Urine Protein NEGATIVE mg/dL (NEGATIVE) 09/01/22 14:55 Urine Glucose (UA) NEGATIVE mg/dL (NEGATIVE) 09/01/22 14:55 Urine Ketones NEGATIVE mg/dL (NEGATIVE) 09/01/22 14:55 Urine Occult Blood NEGATIVE (NEGATIVE) 09/01/22 14:55 Urine Nitrite NEGATIVE (NEGATIVE) 09/01/22 14:55 Urine Bilirubin NEGATIVE (NEGATIVE) 09/01/22 14:55 Urine Urobilinogen 0.2 (NORMAL) E.U./dL (NORMAL) 09/01/22 14:55 Ur Leukocyte Esterase NEGATIVE (NEGATIVE) 09/01/22 14:55 Urine RBC None Seen /HPF (0-5) 09/01/22 14:55 Urine WBC 0-3 /HPF (0-5) 09/01/22 14:55 Ur Squamous Epith Cells MANY Squamous (<= Few) H 09/01/22 14:55 Urine Bacteria None Seen /HPF (None Seen) 09/01/22 14:55 Ur Microscopic Review INDICATED 09/01/22 14:55 Urine Culture Comments NOT INDICATED 09/01/22 14:55 Nasal Adenovirus (PCR) NOT DETECTED 09/01/22 14:26 Nasal B. parapertussis DNA (PCR) NOT DETECTED 09/01/22 14:26 Nasal Coronavir 229E PCR NOT DETECTED 09/01/22 14:26 Nasal Coronavir HKU1 PCR NOT DETECTED 09/01/22 14:26 Nasal Coronavir NL63 PCR NOT DETECTED 09/01/22 14:26 Nasal Coronavir OC43 PCR NOT DETECTED 09/01/22 14:26 Nasal Enterovir/Rhinovir PCR NOT DETECTED 09/01/22 14:26 Nasal Influenza B PCR NOT DETECTED 09/01/22 14:26 Nasal Influenza A PCR NOT DETECTED 09/01/22 14:26 Nasal Parainfluen 1 PCR NOT DETECTED 09/01/22 14:26 Nasal Parainfluen 2 PCR NOT DETECTED 09/01/22 14:26 Nasal Parainfluen 3 PCR NOT DETECTED 09/01/22 14:26 Nasal Parainfluen 4 PCR NOT DETECTED 09/01/22 14:26 Nasal RSV (PCR) NOT DETECTED 09/01/22 14:26 Nasal B.pertussis DNA PCR NOT DETECTED 09/01/22 14:26 Nasal C.pneumoniae (PCR) NOT DETECTED 09/01/22 14:26 Addy Human Metapneumo PCR NOT DETECTED 09/01/22 14:26 Nasal M.pneumoniae (PCR) NOT DETECTED 09/01/22 14:26 Nasal SARS-CoV-2 (PCR) NOT DETECTED 09/01/22 14:26 Urine Opiates Screen NEGATIVE (NEGATIVE) 09/01/22 14:55 Ur Oxycodone Screen NEGATIVE (NEGATIVE) 09/01/22 14:55 Urine Methadone Screen NEGATIVE (NEGATIVE) 09/01/22 14:55 Ur Propoxyphene Screen NEGATIVE (NEGATIVE) 09/01/22 14:55 Ur Barbiturates Screen NEGATIVE (NEGATIVE) 09/01/22 14:55 Ur Tricyclics Screen POSITIVE (NEGATIVE) H 09/01/22 14:55 Ur Phencyclidine Scrn NEGATIVE (NEGATIVE) 09/01/22 14:55 Ur Amphetamine Screen NEGATIVE (NEGATIVE) 09/01/22 14:55 U Methamphetamines Scrn NEGATIVE (NEGATIVE) 09/01/22 14:55 U Benzodiazepines Scrn POSITIVE (NEGATIVE) H 09/01/22 14:55 Urine Cocaine Screen NEGATIVE (NEGATIVE) 09/01/22 14:55 U Cannabinoids Screen POSITIVE (NEGATIVE) H 09/01/22 14:55 ABX Reporting Has patient been on IV antibiotics over the past 48 hours?: No
[2022-09-02] MEDS: MULTIVITAMIN W/MINERALS TABLET PO SCH (18:12)
[2022-09-02] MEDS: ATORVASTATIN 40 MG TABLET PO SCH (22:07)
[2022-09-03] MEDS: SODIUM CHLORIDE FLUSH 0.9% 10 ML SYRINGE IVP SCH ×3 (00:31→16:14)
[2022-09-03] MEDS: SODIUM CHLORIDE 0.9% 1,000 ML IV SCH ×2 (05:42→16:14)
[2022-09-03] MEDS: ASPIRIN CHEW 81 MG TABLET PO SCH (07:52)
[2022-09-03] MEDS: MULTIVITAMIN W/MINERALS TABLET PO SCH (07:52)
[2022-09-03] MEDS: LEVOTHYROXINE 75 MCG TABLET PO SCH (12:05)
[2022-09-03] MEDS: LIOTHYRONINE 5 MCG TABLET PO SCH (12:05)
--- NOTE | 2022-09-03 17:23 | PROVIDER PROGRESS NOTE ---
Assessment/Plan - Problem List (1) Acute encephalopathy Assessment/Plan: Improved Patient had MRI without contrast which revealed no acute abnormalities. Urine tox screen is positive for benzodiazepines tricyclics and cannabinoids. TSH B12 and folate were normal. Patient has improved and is fairly close to baseline. Suspect secondary to mistake made with her medication she uses at home and/or cannabis use. This was probably added to by the fact that she has severe dementia (see #3) The previous Hospitalist reviewed this with patient and [id number] at bedside. Plan: We will order PT eval Continue to hold baclofen and melatonin since she has been restarted on seroquel (2) Akathisia Assessment/Plan: Thought to be secondary to medication mistake and or cannabis use. Urine tox screen revealed positive for benzodiazepines tricyclics and cannabinoids. Plan: OT to keep seeing the patient We will order PT eval (3) Dementia Qualifiers: Dementia type: unspecified type Dementia severity: moderate Assessment/Plan: Patient did have mild to moderate dementia at baseline, per family. Cognitive eval was ordered to be done by OT>> OT did the eval today and she scored 5/30 indicating severe dementia Plan: This type of severe dementia will create the need to have 24/7 caregiving, and discharge home to be alone even part of the day will not be a safe discharge. Will ask SW to contact son and check home caregiving schedule. Continue to hold baclofen and melatonin since she has been restarted on seroquel (4) Hypertension Qualifiers: Hypertension type: primary hypertension Qualified Code(s): I10 - Essential (primary) hypertension Stable on meds (5) Cannabis abuse, daily use Qualified Code(s): F12.10 As per Hx Plan: Remain off Cannabis - Current Meds Current Meds: Current Medications Generic Name Dose Route Start Last Admin Trade Name Em PRN Reason Stop Dose Admin Aspirin 162 mg 09/02/22 09:00 09/03/22 07:52 Aspirin Chew 81 Mg Tablet PO 162 mg DAILY SYBIL Administration Atorvastatin Calcium 80 mg 09/01/22 21:00 09/02/22 22:07 Atorvastatin 40 Mg Tablet PO 80 mg QPM SYBIL Administration Sodium Chloride 1,000 mls @ 100 mls/hr 09/01/22 17:00 09/03/22 16:14 Normal Saline 0.9% IV 100 mls/hr .Q10H SYBIL Administration Levothyroxine Sodium 75 mcg 09/03/22 11:00 09/03/22 12:05 Levothyroxine 75 Mcg Tablet PO 75 mcg QDAC SYBIL Administration Liothyronine Sodium 5 mcg 09/03/22 11:00 09/03/22 12:05 Liothyronine 5 Mcg Tablet PO 5 mcg QDAC SYBIL Administration Multivitamins/Minerals 1 tab 09/02/22 17:00 09/03/22 07:52 Multivitamin W/Minerals Tablet PO 1 tab DAILYWM SYBIL Administration Sodium Chloride 10 ml 09/01/22 17:00 09/03/22 16:14 Sodium Chloride Flush 0.9% 10 Ml Syringe IVP Not Given 0100,0900,1700 SYBIL - Lab Result Fish Bone Diagrams: 09/01/22 10:44 09/01/22 10:44 - Additional Planning My Orders: My Active Orders 09/03/22 Evaluate and Treat PT [PT] Routine 09/03/22 08:17 [id number] [Valium] 5 mg PO BID PRN 09/03/22 11:00 Levothyroxine [Synthroid] 75 mcg PO QDAC Liothyronine [Cytomel] 5 mcg PO QDAC 09/03/22 21:00 Amitriptyline [Elavil] 100 mg PO QPM QUEtiapine [SEROquel] 50 mg PO QPM 09/04/22 07:00 Levothyroxine [Synthroid] 100 mcg PO SuMoWeFr Subjective - Subjective Patient Reports: No Complaints Objective Vital Signs: Vital Signs - 24 hr 09/02/22 09/02/22 09/03/22 20:32 23:30 05:14 Temperature 36.3 C L 37.0 C 36.5 C Heart Rate [ 80 82 78 Brachial] Respiratory 16 20 18 Rate Blood Pressure 131/78 H 142/64 H 161/85 H [Left Brachial artery] O2 Saturation 98 94 94 09/03/22 09/03/22 08:00 16:14 Temperature 36.4 C L 36.6 C Heart Rate [ 78 81 Brachial] Respiratory 6 L 18 Rate Blood Pressure 153/82 H 150/75 H [Left Brachial artery] O2 Saturation 94 94 Oxygen O2 Source Room air Oxygen Flow Rate 2 I&O (Last 24 Hrs): Intake and Output Totals x24h 09/01/22 09/02/22 09/03/22 23:59 23:59 23:59 Intake Total 4889.575 6570.667 2191.667 Output Total 2100 1100 Balance 1533.333 786.177 5900.667 General: Alert, No acute distress HEENT: Mucous membr. moist/pink Neck: Supple, No JVD Neuro: Alert, Disoriented, Other (Poor memory) Cardiovascular: Regular rate Respiratory: No respiratory distress Abdomen: Normal bowel sounds, Soft, Other (Obese with pannus) Extremities: No clubbing, No edema - Results Results: Laboratory Results WBC 14.4 x10^3/uL (4.8-10.8) H 09/01/22 10:44 RBC 5.26 10^6/uL (4.20-5.40) 09/01/22 10:44 Hgb 15.5 g/dL (12.0-16.0) 09/01/22 10:44 Hct 47.8 % (37.0-47.0) H 09/01/22 10:44 MCV 90.9 fL (81.0-99.0) 09/01/22 10:44 MCH 29.5 pg (27.0-31.0) 09/01/22 10:44 MCHC 32.4 g/dL (32.0-36.0) 09/01/22 10:44 RDW 14.1 % (12.0-15.0) 09/01/22 10:44 Plt Count 249 10^3/uL (130-450) 09/01/22 10:44 MPV 10.0 fL (7.9-10.8) 09/01/22 10:44 Neut # (Auto) 11.4 10^3/uL (1.5-6.6) H 09/01/22 10:44 Lymph # (Auto) 1.8 10^3/uL (1.5-3.5) 09/01/22 10:44 [place] # (Auto) 1.0 10^3/uL (0.0-1.0) 09/01/22 10:44 Eos # (Auto) 0.2 10^3/uL (0.0-0.7) 09/01/22 10:44 Baso # (Auto) 0.1 10^3/uL (0.0-0.1) 09/01/22 10:44 Absolute Nucleated RBC 0.00 x10^3/uL 09/01/22 10:44 Nucleated RBC % 0.0 /100WBC 09/01/22 10:44 PT 11.4 secs (9.9-12.6) 09/01/22 10:44 INR 1.0 (0.8-1.2) 09/01/22 10:44 Sodium 144 mmol/L (135-145) 09/01/22 10:44 Potassium 3.9 mmol/L (3.5-5.0) 09/01/22 10:44 Chloride 109 mmol/L (101-111) 09/01/22 10:44 Carbon Dioxide 25 mmol/L (21-32) 09/01/22 10:44 Anion Gap 10.0 (6-13) 09/01/22 10:44 BUN 19 mg/dL (6-20) 09/01/22 10:44 Creatinine 0.8 mg/dL (0.4-1.0) 09/01/22 10:44 Estimated GFR (MDRD) 71 (>89) L 09/01/22 10:44 Glucose 98 mg/dL (70-100) 09/01/22 10:44 POC Whole Bld Glucose 129 mg/dL (70 - 100) H 09/03/22 07:59 Calcium 9.0 mg/dL (8.5-10.3) 09/01/22 10:44 Total Bilirubin 0.8 mg/dL (0.2-1.0) 09/01/22 10:44 AST 20 IU/L (10-42) 09/01/22 10:44 ALT 18 IU/L (10-60) 09/01/22 10:44 Alkaline Phosphatase 68 IU/L (42-121) 09/01/22 10:44 Troponin I High Sens 9.5 ng/L (2.3-14.8) 09/01/22 16:10 Total Protein 7.4 g/dL (6.7-8.2) 09/01/22 10:44 Albumin 4.0 g/dL (3.2-5.5) 09/01/22 10:44 Globulin 3.4 g/dL (2.1-4.2) 09/01/22 10:44 Albumin/Globulin Ratio 1.2 (1.0-2.2) 09/01/22 10:44 Lipase 27 U/L (22-51) 09/01/22 10:44 Vitamin B12 250 pg/mL (180-914) 09/01/22 16:10 Folate 10.43 ng/mL (5.90 - >24.8) 09/01/22 16:10 TSH 2.30 uIU/mL (0.34-5.60) 09/01/22 16:10 Urine Color YELLOW 09/01/22 14:55 Urine Clarity CLOUDY (CLEAR) 09/01/22 14:55 Urine pH 6.0 PH (5.0-7.5) 09/01/22 14:55 Ur Specific [place] 1.020 (1.002-1.030) 09/01/22 14:55 Urine Protein NEGATIVE mg/dL (NEGATIVE) 09/01/22 14:55 Urine Glucose (UA) NEGATIVE mg/dL (NEGATIVE) 09/01/22 14:55 Urine Ketones NEGATIVE mg/dL (NEGATIVE) 09/01/22 14:55 Urine Occult Blood NEGATIVE (NEGATIVE) 09/01/22 14:55 Urine Nitrite NEGATIVE (NEGATIVE) 09/01/22 14:55 Urine Bilirubin NEGATIVE (NEGATIVE) 09/01/22 14:55 Urine Urobilinogen 0.2 (NORMAL) E.U./dL (NORMAL) 09/01/22 14:55 Ur Leukocyte Esterase NEGATIVE (NEGATIVE) 09/01/22 14:55 Urine RBC None Seen /HPF (0-5) 09/01/22 14:55 Urine WBC 0-3 /HPF (0-5) 09/01/22 14:55 Ur Squamous Epith Cells MANY Squamous (<= Few) H 09/01/22 14:55 Urine Bacteria None Seen /HPF (None Seen) 09/01/22 14:55 Ur Microscopic Review INDICATED 09/01/22 14:55 Urine Culture Comments NOT INDICATED 09/01/22 14:55 Nasal Adenovirus (PCR) NOT DETECTED 09/01/22 14:26 Nasal B. parapertussis DNA (PCR) NOT DETECTED 09/01/22 14:26 Nasal Coronavir 229E PCR NOT DETECTED 09/01/22 14:26 Nasal Coronavir HKU1 PCR NOT DETECTED 09/01/22 14:26 Nasal Coronavir NL63 PCR NOT DETECTED 09/01/22 14:26 Nasal Coronavir OC43 PCR NOT DETECTED 09/01/22 14:26 Nasal Enterovir/Rhinovir PCR NOT DETECTED 09/01/22 14:26 Nasal Influenza B PCR NOT DETECTED 09/01/22 14:26 Nasal Influenza A PCR NOT DETECTED 09/01/22 14:26 Nasal Parainfluen 1 PCR NOT DETECTED 09/01/22 14:26 Nasal Parainfluen 2 PCR NOT DETECTED 09/01/22 14:26 Nasal Parainfluen 3 PCR NOT DETECTED 09/01/22 14:26 Nasal Parainfluen 4 PCR NOT DETECTED 09/01/22 14:26 Nasal RSV (PCR) NOT DETECTED 09/01/22 14:26 Nasal B.pertussis DNA PCR NOT DETECTED 09/01/22 14:26 Nasal C.pneumoniae (PCR) NOT DETECTED 09/01/22 14:26 Addy Human Metapneumo PCR NOT DETECTED 09/01/22 14:26 Nasal M.pneumoniae (PCR) NOT DETECTED 09/01/22 14:26 Nasal SARS-CoV-2 (PCR) NOT DETECTED 09/01/22 14:26 Urine Opiates Screen NEGATIVE (NEGATIVE) 09/01/22 14:55 Ur Oxycodone Screen NEGATIVE (NEGATIVE) 09/01/22 14:55 Urine Methadone Screen NEGATIVE (NEGATIVE) 09/01/22 14:55 Ur Propoxyphene Screen NEGATIVE (NEGATIVE) 09/01/22 14:55 Ur Barbiturates Screen NEGATIVE (NEGATIVE) 09/01/22 14:55 Ur Tricyclics Screen POSITIVE (NEGATIVE) H 09/01/22 14:55 Ur Phencyclidine Scrn NEGATIVE (NEGATIVE) 09/01/22 14:55 Ur Amphetamine Screen NEGATIVE (NEGATIVE) 09/01/22 14:55 U Methamphetamines Scrn NEGATIVE (NEGATIVE) 09/01/22 14:55 U Benzodiazepines Scrn POSITIVE (NEGATIVE) H 09/01/22 14:55 Urine Cocaine Screen NEGATIVE (NEGATIVE) 09/01/22 14:55 U Cannabinoids Screen POSITIVE (NEGATIVE) H 09/01/22 14:55
[2022-09-03] MEDS: QUEtiapine 25 MG TABLET PO SCH (21:32)
[2022-09-03] MEDS: AMITRIPTYLINE 25 MG TABLET PO SCH (21:32)
[2022-09-03] MEDS: ATORVASTATIN 40 MG TABLET PO SCH (21:32)
[2022-09-04] MEDS: diazePAM 5 MG TABLET PO PRN (00:02)
[2022-09-04] MEDS: SODIUM CHLORIDE FLUSH 0.9% 10 ML SYRINGE IVP SCH ×3 (00:03→16:26)
[2022-09-04] MEDS: SODIUM CHLORIDE 0.9% 1,000 ML IV SCH (01:30)
[2022-09-04] MEDS: LIOTHYRONINE 5 MCG TABLET PO SCH (06:01)
[2022-09-04] MEDS: LEVOTHYROXINE 100 MCG TABLET PO SCH (06:01)
[2022-09-04] MEDS: LEVOTHYROXINE 75 MCG TABLET PO SCH (06:01)
[2022-09-04] MEDS: MULTIVITAMIN W/MINERALS TABLET PO SCH (08:27)
[2022-09-04] MEDS: ASPIRIN CHEW 81 MG TABLET PO SCH (08:27)
[2022-09-04] MEDS ORDERED: BACLOFEN 10 MG TABLET PO PRN (16:49)
--- NOTE | 2022-09-04 16:56 | PROVIDER PROGRESS NOTE ---
Assessment/Plan - Problem List (1) Acute encephalopathy Assessment/Plan: Improved Patient had MRI without contrast which revealed no acute abnormalities. Urine tox screen was positive for benzodiazepines tricyclics and cannabinoids. TSH B12 and folate were normal. Patient has improved and is fairly close to baseline, which includes a poor memory. Suspect secondary to mistake made with her medication she uses at home and/or cannabis use. This was probably added to by the fact that she has severe dementia (see #3) The previous Hospitalist reviewed this with patient and [id number] at bedside. PT has started to see the patient Today I called the patient's son Wilman who is her DPOA. I discussed results of the slums test for dementia and her results of 09/17. With this severe dementia I recommend 24/7 caregiving. I discussed this with Wilman. He said he already wanted the patient to move in with him and for 5 years he has been trying to talk his mother into selling the house in [place] to not live alone. Plan: Continue to hold melatonin since she has been restarted on seroquel She is not yet ready for discharge because of no safe discharge plan today, since she lives at home alone and only has part-time caregivers. Wilman is working on seeing if he can get full-time caregivers at her house or where the plan will be for discharge. I expect she will be medically ready for discharge tomorrow. (2) Akathisia Assessment/Plan: Improved Thought to be secondary to medication mistake and or cannabis use. Urine tox screen revealed positive for benzodiazepines tricyclics and cannabinoids. OT and PT have started to work with the patient (3) Dementia Qualifiers: Dementia type: unspecified type Dementia severity: moderate Assessment/Plan: Patient did have mild to moderate dementia at baseline, per family. Cognitive eval was ordered to be done by OT and she scored 5/30 indicating severe dementia. This type of severe dementia will create the need to have 24/7 caregiving, and discharge home to be alone even part of the day will not be a safe discharge. Plan: Continue to hold melatonin since she has been restarted on seroquel She is requesting to restart the baclofen which I will order and see if this worsens her cognition (4) Hypertension Qualifiers: Hypertension type: primary hypertension Qualified Code(s): I10 - Essential (primary) hypertension Stable on meds (5) Cannabis abuse, daily use Qualified Code(s): F12.10 As per Hx I discussed with the Wilman today that the patient should not be using this at all because it adds to her confusion. He agreed - Current Meds Current Meds: Current Medications Generic Name Dose Route Start Last Admin Trade Name Em PRN Reason Stop Dose Admin Amitriptyline HCl 100 mg 09/03/22 21:00 09/03/22 21:32 Amitriptyline 25 Mg Tablet PO 100 mg QPM SYBIL Administration Aspirin 162 mg 09/02/22 09:00 09/04/22 08:27 Aspirin Chew 81 Mg Tablet PO 162 mg DAILY SYBIL Administration Atorvastatin Calcium 80 mg 09/01/22 21:00 09/03/22 21:32 Atorvastatin 40 Mg Tablet PO 80 mg QPM SYBIL Administration Diazepam 5 mg 09/03/22 08:17 09/04/22 00:02 Diazepam 5 Mg Tablet PO 5 mg BID PRN Administration Severe Pain (Level 7-10) Sodium Chloride 1,000 mls @ 100 mls/hr 09/01/22 17:00 09/04/22 11:18 Normal Saline 0.9% IV Infused .Q10H SYBIL Infusion Levothyroxine Sodium 100 mcg 09/04/22 07:00 09/04/22 06:01 Levothyroxine 100 Mcg Tablet PO 100 mcg SuMoWeFr SYBIL Administration Levothyroxine Sodium 75 mcg 09/03/22 11:00 09/04/22 06:01 Levothyroxine 75 Mcg Tablet PO 75 mcg QDAC SYBIL Administration Liothyronine Sodium 5 mcg 09/03/22 11:00 09/04/22 06:01 Liothyronine 5 Mcg Tablet PO 5 mcg QDAC SYBIL Administration Multivitamins/Minerals 1 tab 09/02/22 17:00 09/04/22 08:27 Multivitamin W/Minerals Tablet PO 1 tab DAILYWM SYBIL Administration Quetiapine Fumarate 50 mg 09/03/22 21:00 09/03/22 21:32 Quetiapine 25 Mg Tablet PO 50 mg QPM SYBIL Administration Sodium Chloride 10 ml 09/01/22 17:00 09/04/22 16:26 Sodium Chloride Flush 0.9% 10 Ml Syringe IVP 10 ml 0100,0900,1700 SYBIL Administration - Lab Result Fish Bone Diagrams: 09/01/22 10:44 09/01/22 10:44 - Additional Planning My Orders: My Active Orders 09/03/22 21:00 Amitriptyline [Elavil] 100 mg PO QPM QUEtiapine [SEROquel] 50 mg PO QPM 09/04/22 Home Health Referral [CONS] Routine 09/04/22 07:00 Levothyroxine [Synthroid] 100 mcg PO SuMoWeFr 09/04/22 16:49 Baclofen [Lioresal] 20 mg PO TID PRN 09/04/22 21:00 Celecoxib [CeleBREX] 100 mg PO BID Subjective - Subjective Patient Reports: Resting Comfortably, No Complaints Objective Vital Signs: Vital Signs - 24 hr 09/03/22 09/04/22 23:51 08:00 Temperature 36.4 C L 36.5 C Heart Rate [ 80 79 Brachial] Respiratory 12 16 Rate Blood Pressure 152/91 H 145/96 H [Left Brachial artery] O2 Saturation 96 95 Oxygen O2 Source Room air Oxygen Flow Rate 2 I&O (Last 24 Hrs): Intake and Output Totals x24h 09/02/22 09/03/22 09/04/22 23:59 23:59 23:59 Intake Total 2441.667 3868.334 3160 Output Total 2100 2450 2840 Balance 137.430 1530.334 320 General: Alert, No acute distress HEENT: Mucous membr. moist/pink Neck: Supple, No JVD Neuro: Alert, Disoriented, Non Focal Cardiovascular: No murmurs Respiratory: Breath sounds nml Abdomen: Soft, Other (Obese with pannus) Extremities: No clubbing, No edema - Results Results: Laboratory Results WBC 14.4 x10^3/uL (4.8-10.8) H 09/01/22 10:44 RBC 5.26 10^6/uL (4.20-5.40) 09/01/22 10:44 Hgb 15.5 g/dL (12.0-16.0) 09/01/22 10:44 Hct 47.8 % (37.0-47.0) H 09/01/22 10:44 MCV 90.9 fL (81.0-99.0) 09/01/22 10:44 MCH 29.5 pg (27.0-31.0) 09/01/22 10:44 MCHC 32.4 g/dL (32.0-36.0) 09/01/22 10:44 RDW 14.1 % (12.0-15.0) 09/01/22 10:44 Plt Count 249 10^3/uL (130-450) 09/01/22 10:44 MPV 10.0 fL (7.9-10.8) 09/01/22 10:44 Neut # (Auto) 11.4 10^3/uL (1.5-6.6) H 09/01/22 10:44 Lymph # (Auto) 1.8 10^3/uL (1.5-3.5) 09/01/22 10:44 [place] # (Auto) 1.0 10^3/uL (0.0-1.0) 09/01/22 10:44 Eos # (Auto) 0.2 10^3/uL (0.0-0.7) 09/01/22 10:44 Baso # (Auto) 0.1 10^3/uL (0.0-0.1) 09/01/22 10:44 Absolute Nucleated RBC 0.00 x10^3/uL 09/01/22 10:44 Nucleated RBC % 0.0 /100WBC 09/01/22 10:44 PT 11.4 secs (9.9-12.6) 09/01/22 10:44 INR 1.0 (0.8-1.2) 09/01/22 10:44 Sodium 144 mmol/L (135-145) 09/01/22 10:44 Potassium 3.9 mmol/L (3.5-5.0) 09/01/22 10:44 Chloride 109 mmol/L (101-111) 09/01/22 10:44 Carbon Dioxide 25 mmol/L (21-32) 09/01/22 10:44 Anion Gap 10.0 (6-13) 09/01/22 10:44 BUN 19 mg/dL (6-20) 09/01/22 10:44 Creatinine 0.8 mg/dL (0.4-1.0) 09/01/22 10:44 Estimated GFR (MDRD) 71 (>89) L 09/01/22 10:44 Glucose 98 mg/dL (70-100) 09/01/22 10:44 POC Whole Bld Glucose 129 mg/dL (70 - 100) H 09/03/22 07:59 Calcium 9.0 mg/dL (8.5-10.3) 09/01/22 10:44 Total Bilirubin 0.8 mg/dL (0.2-1.0) 09/01/22 10:44 AST 20 IU/L (10-42) 09/01/22 10:44 ALT 18 IU/L (10-60) 09/01/22 10:44 Alkaline Phosphatase 68 IU/L (42-121) 09/01/22 10:44 Troponin I High Sens 9.5 ng/L (2.3-14.8) 09/01/22 16:10 Total Protein 7.4 g/dL (6.7-8.2) 09/01/22 10:44 Albumin 4.0 g/dL (3.2-5.5) 09/01/22 10:44 Globulin 3.4 g/dL (2.1-4.2) 09/01/22 10:44 Albumin/Globulin Ratio 1.2 (1.0-2.2) 09/01/22 10:44 Lipase 27 U/L (22-51) 09/01/22 10:44 Vitamin B12 250 pg/mL (180-914) 09/01/22 16:10 Folate 10.43 ng/mL (5.90 - >24.8) 09/01/22 16:10 TSH 2.30 uIU/mL (0.34-5.60) 09/01/22 16:10 Urine Color YELLOW 09/01/22 14:55 Urine Clarity CLOUDY (CLEAR) 09/01/22 14:55 Urine pH 6.0 PH (5.0-7.5) 09/01/22 14:55 Ur Specific [place] 1.020 (1.002-1.030) 09/01/22 14:55 Urine Protein NEGATIVE mg/dL (NEGATIVE) 09/01/22 14:55 Urine Glucose (UA) NEGATIVE mg/dL (NEGATIVE) 09/01/22 14:55 Urine Ketones NEGATIVE mg/dL (NEGATIVE) 09/01/22 14:55 Urine Occult Blood NEGATIVE (NEGATIVE) 09/01/22 14:55 Urine Nitrite NEGATIVE (NEGATIVE) 09/01/22 14:55 Urine Bilirubin NEGATIVE (NEGATIVE) 09/01/22 14:55 Urine Urobilinogen 0.2 (NORMAL) E.U./dL (NORMAL) 09/01/22 14:55 Ur Leukocyte Esterase NEGATIVE (NEGATIVE) 09/01/22 14:55 Urine RBC None Seen /HPF (0-5) 09/01/22 14:55 Urine WBC 0-3 /HPF (0-5) 09/01/22 14:55 Ur Squamous Epith Cells MANY Squamous (<= Few) H 09/01/22 14:55 Urine Bacteria None Seen /HPF (None Seen) 09/01/22 14:55 Ur Microscopic Review INDICATED 09/01/22 14:55 Urine Culture Comments NOT INDICATED 09/01/22 14:55 Nasal Adenovirus (PCR) NOT DETECTED 09/01/22 14:26 Nasal B. parapertussis DNA (PCR) NOT DETECTED 09/01/22 14:26 Nasal Coronavir 229E PCR NOT DETECTED 09/01/22 14:26 Nasal Coronavir HKU1 PCR NOT DETECTED 09/01/22 14:26 Nasal Coronavir NL63 PCR NOT DETECTED 09/01/22 14:26 Nasal Coronavir OC43 PCR NOT DETECTED 09/01/22 14:26 Nasal Enterovir/Rhinovir PCR NOT DETECTED 09/01/22 14:26 Nasal Influenza B PCR NOT DETECTED 09/01/22 14:26 Nasal Influenza A PCR NOT DETECTED 09/01/22 14:26 Nasal Parainfluen 1 PCR NOT DETECTED 09/01/22 14:26 Nasal Parainfluen 2 PCR NOT DETECTED 09/01/22 14:26 Nasal Parainfluen 3 PCR NOT DETECTED 09/01/22 14:26 Nasal Parainfluen 4 PCR NOT DETECTED 09/01/22 14:26 Nasal RSV (PCR) NOT DETECTED 09/01/22 14:26 Nasal B.pertussis DNA PCR NOT DETECTED 09/01/22 14:26 Nasal C.pneumoniae (PCR) NOT DETECTED 09/01/22 14:26 Addy Human Metapneumo PCR NOT DETECTED 09/01/22 14:26 Nasal M.pneumoniae (PCR) NOT DETECTED 09/01/22 14:26 Nasal SARS-CoV-2 (PCR) NOT DETECTED 09/01/22 14:26 Urine Opiates Screen NEGATIVE (NEGATIVE) 09/01/22 14:55 Ur Oxycodone Screen NEGATIVE (NEGATIVE) 09/01/22 14:55 Urine Methadone Screen NEGATIVE (NEGATIVE) 09/01/22 14:55 Ur Propoxyphene Screen NEGATIVE (NEGATIVE) 09/01/22 14:55 Ur Barbiturates Screen NEGATIVE (NEGATIVE) 09/01/22 14:55 Ur Tricyclics Screen POSITIVE (NEGATIVE) H 09/01/22 14:55 Ur Phencyclidine Scrn NEGATIVE (NEGATIVE) 09/01/22 14:55 Ur Amphetamine Screen NEGATIVE (NEGATIVE) 09/01/22 14:55 U Methamphetamines Scrn NEGATIVE (NEGATIVE) 09/01/22 14:55 U Benzodiazepines Scrn POSITIVE (NEGATIVE) H 09/01/22 14:55 Urine Cocaine Screen NEGATIVE (NEGATIVE) 09/01/22 14:55 U Cannabinoids Screen POSITIVE (NEGATIVE) H 09/01/22 14:55
[2022-09-04] MEDS: ATORVASTATIN 40 MG TABLET PO SCH (20:37)
[2022-09-04] MEDS: CELECOXIB 100 MG CAPSULE PO SCH (20:37)
[2022-09-04] MEDS: QUEtiapine 25 MG TABLET PO SCH (20:37)
[2022-09-04] MEDS: AMITRIPTYLINE 25 MG TABLET PO SCH (20:40)
[2022-09-05] MEDS: SODIUM CHLORIDE FLUSH 0.9% 10 ML SYRINGE IVP SCH ×4 (01:05→23:51)
[2022-09-05] MEDS: LIOTHYRONINE 5 MCG TABLET PO SCH (06:14)
[2022-09-05] MEDS: LEVOTHYROXINE 75 MCG TABLET PO SCH (06:14)
[2022-09-05] MEDS: MULTIVITAMIN W/MINERALS TABLET PO SCH (07:56)
[2022-09-05] MEDS: ASPIRIN CHEW 81 MG TABLET PO SCH (07:56)
[2022-09-05] MEDS: CELECOXIB 100 MG CAPSULE PO SCH ×2 (07:56→20:11)
[2022-09-05] MEDS: polyethylene glycoL 3350 17 GM PACKET PO SCH (14:49)
--- NOTE | 2022-09-05 19:29 | PROVIDER PROGRESS NOTE ---
Assessment/Plan - Problem List (1) Dementia Qualifiers: Dementia type: unspecified type Dementia severity: severe Assessment/Plan: Patient did have mild to moderate dementia at baseline, per family. Cognitive eval was done by OT and she scored 5/30 indicating severe dementia. This type of severe dementia will create the need to have 24/7 caregiving, and discharge home to be alone even part of the day will not be a safe discharge. Plan: Continue to hold melatonin since she has been restarted on seroquel She requested to restart the baclofen which I did order and we are watching if this worsens her cognition (2) No able caregiver in household Patient lives alone at home. She gets caregivers several days of the week and for only several hours. On 09/04 I called the patient's son Wilman who is her DPOA. I discussed results of the SLUMS test for dementia and her result of 09/17. With this severe dementia I recommend 24/7 caregiving. I discussed this with Wilman. He said he already wanted the patient to move in with him and for 5 years he has been trying to talk his mother into leave the house in [place] to not live alone. Plan: Today the social service worker and the son Wilman, who came in, worked on increasing the support she qualifies for, so that she can either get caregivers paid for or son will consider putting her into a jail (3) Hypertension Qualifiers: Hypertension type: primary hypertension Qualified Code(s): I10 - Essential (primary) hypertension Stable on meds (4) Cannabis abuse, daily use Qualified Code(s): F12.10 As per Hx I discussed with the Wilman by phone on 09/04 that the patient should not be using marijuana at all because it adds to her confusion. He agreed (5) Acute encephalopathy Improved Patient had MRI without contrast which revealed no acute abnormalities. Urine tox screen was positive for benzodiazepines tricyclics and cannabinoids. TSH B12 and folate were normal. Patient has improved and is fairly close to baseline, which includes a poor memory. Suspect secondary to mistake made with her medication she used at home and/or cannabis use. This was probably added to by the fact that she has severe dementia (see #1) The previous Hospitalist reviewed this with patient and [id number] at bedside. PT is working with the pt Plan: Continue to hold melatonin since she has been restarted on seroquel She is not yet ready for discharge because of no safe discharge plan today, since she lives at home alone and only has part-time caregivers. Wilman is working on seeing if he can get full-time caregivers at her house or where the plan will be for discharge. (6) Akathisia Assessment/Plan: Resolved Thought to be secondary to medication mistake and or cannabis use. Urine tox screen revealed positive for benzodiazepines tricyclics and cannabinoids. OT and PT have started to work with the patient - Current Meds Current Meds: Current Medications Generic Name Dose Route Start Last Admin Trade Name Freq PRN Reason Stop Dose Admin Amitriptyline HCl 100 mg 09/03/22 21:00 09/04/22 20:40 Amitriptyline 25 Mg Tablet PO 100 mg QPM SYBIL Administration Aspirin 162 mg 09/02/22 09:00 09/05/22 07:56 Aspirin Chew 81 Mg Tablet PO 162 mg DAILY SYBIL Administration Atorvastatin Calcium 80 mg 09/01/22 21:00 09/04/22 20:37 Atorvastatin 40 Mg Tablet PO 80 mg QPM SYBIL Administration Celecoxib 100 mg 09/04/22 21:00 09/05/22 07:56 Celecoxib 100 Mg Capsule PO 100 mg BID SYBIL Administration Diazepam 5 mg 09/03/22 08:17 09/04/22 00:02 Diazepam 5 Mg Tablet PO 5 mg BID PRN Administration Severe Pain (Level 7-10) Levothyroxine Sodium 100 mcg 09/04/22 07:00 09/04/22 06:01 Levothyroxine 100 Mcg Tablet PO 100 mcg SuMoWeFr SYBIL Administration Levothyroxine Sodium 75 mcg 09/03/22 11:00 09/05/22 06:14 Levothyroxine 75 Mcg Tablet PO 75 mcg QDAC SYBIL Administration Liothyronine Sodium 5 mcg 09/03/22 11:00 09/05/22 06:14 Liothyronine 5 Mcg Tablet PO 5 mcg QDAC SYBIL Administration Multivitamins/Minerals 1 tab 09/02/22 17:00 09/05/22 07:56 Multivitamin W/Minerals Tablet PO 1 tab DAILYWM SYBIL Administration Polyethylene Glycol 17 gm 09/05/22 13:00 09/05/22 14:49 Polyethylene Glycol 3350 17 Gm Packet PO 17 gm DAILY SYBIL Administration Quetiapine Fumarate 50 mg 09/03/22 21:00 09/04/22 20:37 Quetiapine 25 Mg Tablet PO 50 mg QPM SYBIL Administration Sodium Chloride 10 ml 09/01/22 17:00 09/05/22 16:32 Sodium Chloride Flush 0.9% 10 Ml Syringe IVP 10 ml 0100,0900,1700 SYBIL Administration - Lab Result Fish Bone Diagrams: 09/01/22 10:44 09/01/22 10:44 - Additional Planning My Orders: My Active Orders 09/04/22 21:00 Celecoxib [CeleBREX] 100 mg PO BID 09/05/22 13:00 polyethylene glycoL 3350 [Miralax] 17 gm PO DAILY Subjective - Subjective Patient Reports: No Complaints Objective Vital Signs: Vital Signs - 24 hr 09/04/22 09/04/22 09/05/22 20:07 23:07 08:52 Temperature 36.6 C 36.6 C 36.3 C L Heart Rate [ 85 66 82 Brachial] Respiratory 18 18 18 Rate Blood Pressure 142/80 H 170/84 H [Left Brachial artery] Blood Pressure 144/104 H 164/121 H [Right Brachial artery] O2 Saturation 94 94 97 09/05/22 16:18 Temperature 37.0 C Heart Rate [ 80 Brachial] Respiratory 16 Rate Blood Pressure [Left Brachial artery] Blood Pressure 159/86 H [Right Brachial artery] O2 Saturation 95 Oxygen O2 Source Room air Oxygen Flow Rate 2 I&O (Last 24 Hrs): Intake and Output Totals x24h 09/03/22 09/04/22 09/05/22 23:59 23:59 23:59 Intake Total 3868.334 3950 2278 Output Total 2450 2840 1200 Balance 6202.770 2840 1078 General: Alert, No acute distress HEENT: Mucous membr. moist/pink Neck: Supple Neuro: Alert, Non Focal, Other (Poor memory. Pleasant and cooperative.) Respiratory: No respiratory distress Extremities: No clubbing - Results Results: Laboratory Results WBC 14.4 x10^3/uL (4.8-10.8) H 09/01/22 10:44 RBC 5.26 10^6/uL (4.20-5.40) 09/01/22 10:44 Hgb 15.5 g/dL (12.0-16.0) 09/01/22 10:44 Hct 47.8 % (37.0-47.0) H 09/01/22 10:44 MCV 90.9 fL (81.0-99.0) 09/01/22 10:44 MCH 29.5 pg (27.0-31.0) 09/01/22 10:44 MCHC 32.4 g/dL (32.0-36.0) 09/01/22 10:44 RDW 14.1 % (12.0-15.0) 09/01/22 10:44 Plt Count 249 10^3/uL (130-450) 09/01/22 10:44 MPV 10.0 fL (7.9-10.8) 09/01/22 10:44 Neut # (Auto) 11.4 10^3/uL (1.5-6.6) H 09/01/22 10:44 Lymph # (Auto) 1.8 10^3/uL (1.5-3.5) 09/01/22 10:44 [place] # (Auto) 1.0 10^3/uL (0.0-1.0) 09/01/22 10:44 Eos # (Auto) 0.2 10^3/uL (0.0-0.7) 09/01/22 10:44 Baso # (Auto) 0.1 10^3/uL (0.0-0.1) 09/01/22 10:44 Absolute Nucleated RBC 0.00 x10^3/uL 09/01/22 10:44 Nucleated RBC % 0.0 /100WBC 09/01/22 10:44 PT 11.4 secs (9.9-12.6) 09/01/22 10:44 INR 1.0 (0.8-1.2) 09/01/22 10:44 Sodium 144 mmol/L (135-145) 09/01/22 10:44 Potassium 3.9 mmol/L (3.5-5.0) 09/01/22 10:44 Chloride 109 mmol/L (101-111) 09/01/22 10:44 Carbon Dioxide 25 mmol/L (21-32) 09/01/22 10:44 Anion Gap 10.0 (6-13) 09/01/22 10:44 BUN 19 mg/dL (6-20) 09/01/22 10:44 Creatinine 0.8 mg/dL (0.4-1.0) 09/01/22 10:44 Estimated GFR (MDRD) 71 (>89) L 09/01/22 10:44 Glucose 98 mg/dL (70-100) 09/01/22 10:44 POC Whole Bld Glucose 129 mg/dL (70 - 100) H 09/03/22 07:59 Calcium 9.0 mg/dL (8.5-10.3) 09/01/22 10:44 Total Bilirubin 0.8 mg/dL (0.2-1.0) 09/01/22 10:44 AST 20 IU/L (10-42) 09/01/22 10:44 ALT 18 IU/L (10-60) 09/01/22 10:44 Alkaline Phosphatase 68 IU/L (42-121) 09/01/22 10:44 Troponin I High Sens 9.5 ng/L (2.3-14.8) 09/01/22 16:10 Total Protein 7.4 g/dL (6.7-8.2) 09/01/22 10:44 Albumin 4.0 g/dL (3.2-5.5) 09/01/22 10:44 Globulin 3.4 g/dL (2.1-4.2) 09/01/22 10:44 Albumin/Globulin Ratio 1.2 (1.0-2.2) 09/01/22 10:44 Lipase 27 U/L (22-51) 09/01/22 10:44 Vitamin B12 250 pg/mL (180-914) 09/01/22 16:10 Folate 10.43 ng/mL (5.90 - >24.8) 09/01/22 16:10 TSH 2.30 uIU/mL (0.34-5.60) 09/01/22 16:10 Urine Color YELLOW 09/01/22 14:55 Urine Clarity CLOUDY (CLEAR) 09/01/22 14:55 Urine pH 6.0 PH (5.0-7.5) 09/01/22 14:55 Ur Specific [place] 1.020 (1.002-1.030) 09/01/22 14:55 Urine Protein NEGATIVE mg/dL (NEGATIVE) 09/01/22 14:55 Urine Glucose (UA) NEGATIVE mg/dL (NEGATIVE) 09/01/22 14:55 Urine Ketones NEGATIVE mg/dL (NEGATIVE) 09/01/22 14:55 Urine Occult Blood NEGATIVE (NEGATIVE) 09/01/22 14:55 Urine Nitrite NEGATIVE (NEGATIVE) 09/01/22 14:55 Urine Bilirubin NEGATIVE (NEGATIVE) 09/01/22 14:55 Urine Urobilinogen 0.2 (NORMAL) E.U./dL (NORMAL) 09/01/22 14:55 Ur Leukocyte Esterase NEGATIVE (NEGATIVE) 09/01/22 14:55 Urine RBC None Seen /HPF (0-5) 09/01/22 14:55 Urine WBC 0-3 /HPF (0-5) 09/01/22 14:55 Ur Squamous Epith Cells MANY Squamous (<= Few) H 09/01/22 14:55 Urine Bacteria None Seen /HPF (None Seen) 09/01/22 14:55 Ur Microscopic Review INDICATED 09/01/22 14:55 Urine Culture Comments NOT INDICATED 09/01/22 14:55 Nasal Adenovirus (PCR) NOT DETECTED 09/01/22 14:26 Nasal B. parapertussis DNA (PCR) NOT DETECTED 09/01/22 14:26 Nasal Coronavir 229E PCR NOT DETECTED 09/01/22 14:26 Nasal Coronavir HKU1 PCR NOT DETECTED 09/01/22 14:26 Nasal Coronavir NL63 PCR NOT DETECTED 09/01/22 14:26 Nasal Coronavir OC43 PCR NOT DETECTED 09/01/22 14:26 Nasal Enterovir/Rhinovir PCR NOT DETECTED 09/01/22 14:26 Nasal Influenza B PCR NOT DETECTED 09/01/22 14:26 Nasal Influenza A PCR NOT DETECTED 09/01/22 14:26 Nasal Parainfluen 1 PCR NOT DETECTED 09/01/22 14:26 Nasal Parainfluen 2 PCR NOT DETECTED 09/01/22 14:26 Nasal Parainfluen 3 PCR NOT DETECTED 09/01/22 14:26 Nasal Parainfluen 4 PCR NOT DETECTED 09/01/22 14:26 Nasal RSV (PCR) NOT DETECTED 09/01/22 14:26 Nasal B.pertussis DNA PCR NOT DETECTED 09/01/22 14:26 Nasal C.pneumoniae (PCR) NOT DETECTED 09/01/22 14:26 Addy Human Metapneumo PCR NOT DETECTED 09/01/22 14:26 Nasal M.pneumoniae (PCR) NOT DETECTED 09/01/22 14:26 Nasal SARS-CoV-2 (PCR) NOT DETECTED 09/01/22 14:26 Urine Opiates Screen NEGATIVE (NEGATIVE) 09/01/22 14:55 Ur Oxycodone Screen NEGATIVE (NEGATIVE) 09/01/22 14:55 Urine Methadone Screen NEGATIVE (NEGATIVE) 09/01/22 14:55 Ur Propoxyphene Screen NEGATIVE (NEGATIVE) 09/01/22 14:55 Ur Barbiturates Screen NEGATIVE (NEGATIVE) 09/01/22 14:55 Ur Tricyclics Screen POSITIVE (NEGATIVE) H 09/01/22 14:55 Ur Phencyclidine Scrn NEGATIVE (NEGATIVE) 09/01/22 14:55 Ur Amphetamine Screen NEGATIVE (NEGATIVE) 09/01/22 14:55 U Methamphetamines Scrn NEGATIVE (NEGATIVE) 09/01/22 14:55 U Benzodiazepines Scrn POSITIVE (NEGATIVE) H 09/01/22 14:55 Urine Cocaine Screen NEGATIVE (NEGATIVE) 09/01/22 14:55 U Cannabinoids Screen POSITIVE (NEGATIVE) H 09/01/22 14:55
[2022-09-05] MEDS: diazePAM 5 MG TABLET PO PRN (19:47)
[2022-09-05] MEDS: AMITRIPTYLINE 25 MG TABLET PO SCH (20:11)
[2022-09-05] MEDS: ATORVASTATIN 40 MG TABLET PO SCH (20:11)
[2022-09-05] MEDS: QUEtiapine 25 MG TABLET PO SCH (20:12)
[2022-09-05] MEDS ORDERED: hydrALAZINE 10 MG TABLET PO SCH (21:25)
[2022-09-05] MEDS: NYSTATIN CREAM 15 GM TUBE TOP SCH (21:53)
[2022-09-05] MEDS ORDERED: NYSTATIN CREAM 15 GM TUBE TOP SCH (22:00)
[2022-09-06] MEDS: LEVOTHYROXINE 100 MCG TABLET PO SCH (06:11)
[2022-09-06] MEDS: LEVOTHYROXINE 75 MCG TABLET PO SCH (06:11)
--- NOTE | 2022-09-06 07:59 | PROVIDER PROGRESS NOTE ---
Assessment/Plan - Problem List (1) Hypertension Qualifiers: Hypertension type: primary hypertension Qualified Code(s): I10 - Essential (primary) hypertension Assessment/Plan: The patient is running blood pressures as high as 170s/100s here (vital signs were all reviewed). At home she was on lisinopril plus Lasix orally. Neither of the these have been resumed since admission Plan: We will resume her Lisinopril (2) Dementia Qualifiers: Dementia type: unspecified type Dementia severity: severe Assessment/Plan: Patient did have mild to moderate dementia at baseline, per family. Cognitive eval was done by OT and she scored 5/30 indicating severe dementia. This type of severe dementia will create the need to have 24/7 caregiving, and discharge home to be alone even part of the day will not be a safe discharge. Plan: Continue to hold melatonin since she has been restarted on seroquel She requested to restart the baclofen which I did order and we are watching if this worsens her cognition (3) No able caregiver in household Patient lives alone at home. She gets caregivers several days of the week and for only several hours. On 09/04 I called the patient's son Wilman who is her DPOA. I discussed results of the SLUMS test for dementia and her result of 09/17. With this severe dementia I recommend 24/7 caregiving. I discussed this with Wilman. He said he already wanted the patient to move in with him and for 5 years he has been trying to talk his mother into leave the house in [place] to not live alone. Plan: Today the manager social responsibility and the son Wilman, who came in, worked on increasing the support she qualifies for, so that she can either get caregivers paid for or son will consider putting her into a senior care (4) Hypertension Qualifiers: Hypertension type: primary hypertension Qualified Code(s): I10 - Essential (primary) hypertension Stable on meds (5) Cannabis abuse, daily use Qualified Code(s): F12.10 As per Hx I discussed with the Wilman by phone on 09/04 that the patient should not be using marijuana at all because it adds to her confusion. He agreed (6) Acute encephalopathy Improved Patient had MRI without contrast which revealed no acute abnormalities. Urine tox screen was positive for benzodiazepines tricyclics and cannabinoids. TSH B12 and folate were normal. Patient has improved and is fairly close to baseline, which includes a poor memory. Suspect secondary to mistake made with her medication she used at home and/or cannabis use. This was probably added to by the fact that she has severe dementia (see #1) The previous Hospitalist reviewed this with patient and [id number] at bedside. PT is working with the pt Plan: Continue to hold melatonin since she has been restarted on seroquel She is not yet ready for discharge because of no safe discharge plan today, since she lives at home alone and only has part-time caregivers. Wilman is working on seeing if he can get full-time caregivers at her house or where the plan will be for discharge. (7) Akathisia Assessment/Plan: Resolved Thought to be secondary to medication mistake and or cannabis use. Urine tox screen revealed positive for benzodiazepines tricyclics and cannabinoids Plan: Continue OT and PT - Current Meds Current Meds: Current Medications Generic Name Dose Route Start Last Admin Trade Name Freq PRN Reason Stop Dose Admin Amitriptyline HCl 100 mg 09/03/22 21:00 09/05/22 20:11 Amitriptyline 25 Mg Tablet PO 100 mg QPM SYBIL Administration Aspirin 162 mg 09/02/22 09:00 09/05/22 07:56 Aspirin Chew 81 Mg Tablet PO 162 mg DAILY SYBIL Administration Atorvastatin Calcium 80 mg 09/01/22 21:00 09/05/22 20:11 Atorvastatin 40 Mg Tablet PO 80 mg QPM SYBIL Administration Celecoxib 100 mg 09/04/22 21:00 09/05/22 20:11 Celecoxib 100 Mg Capsule PO 100 mg BID SYBIL Administration Diazepam 5 mg 09/03/22 08:17 09/05/22 19:47 Diazepam 5 Mg Tablet PO 5 mg BID PRN Administration Severe Pain (Level 7-10) Levothyroxine Sodium 100 mcg 09/04/22 07:00 09/06/22 06:11 Levothyroxine 100 Mcg Tablet PO 100 mcg [id number] SYBIL Administration Levothyroxine Sodium 75 mcg 09/03/22 11:00 09/06/22 06:11 Levothyroxine 75 Mcg Tablet PO 75 mcg QDAC SYBIL Administration Multivitamins/Minerals 1 tab 09/02/22 17:00 09/05/22 07:56 Multivitamin W/Minerals Tablet PO 1 tab DAILYWM SYBIL Administration Nystatin 1 applic 09/05/22 22:00 09/05/22 21:53 Nystatin Cream 15 Gm Tube TOP 1 applic BID SYBIL Administration Polyethylene Glycol 17 gm 09/05/22 13:00 09/05/22 14:49 Polyethylene Glycol 3350 17 Gm Packet PO 17 gm DAILY SYBIL Administration Quetiapine Fumarate 50 mg 09/03/22 21:00 09/05/22 20:12 Quetiapine 25 Mg Tablet PO 50 mg QPM SYBIL Administration Sodium Chloride 10 ml 09/01/22 16:11 09/05/22 19:36 Sodium Chloride Flush 0.9% 10 Ml Syringe IVP 10 ml PRN PRN Administration NEEDED PER PROVIDER ORDERS Sodium Chloride 10 ml 09/01/22 17:00 09/05/22 23:51 Sodium Chloride Flush 0.9% 10 Ml Syringe IVP 10 ml 0100,0900,1700 SYBIL Administration - Lab Result Fish Bone Diagrams: 09/01/22 10:44 09/01/22 10:44 - Additional Planning My Orders: My Active Orders 09/05/22 13:00 polyethylene glycoL 3350 [Miralax] 17 gm PO DAILY 09/06/22 09:00 Liothyronine [Cytomel] 5 mcg PO QDAC lisinopriL [Lisinopril] 40 mg PO DAILY Objective Vital Signs: Vital Signs - 24 hr 09/05/22 09/05/22 09/05/22 08:52 16:18 21:07 Temperature 36.3 C L 37.0 C 36.5 C Heart Rate [ 82 80 87 Brachial] Respiratory 18 16 18 Rate Blood Pressure 170/84 H [Left Brachial artery] Blood Pressure 164/121 H 159/86 H 150/93 H [Right Brachial artery] O2 Saturation 97 95 97 09/05/22 23:51 Temperature 37.0 C Heart Rate [ 90 Brachial] Respiratory 20 Rate Blood Pressure [Left Brachial artery] Blood Pressure 163/88 H [Right Brachial artery] O2 Saturation 94 Oxygen O2 Source Room air Oxygen Flow Rate 2 I&O (Last 24 Hrs): Intake and Output Totals x24h 09/04/22 09/05/22 09/06/22 23:59 23:59 23:59 Intake Total 3950 2478 Output Total 2840 1500 500 Balance 1110 978 -500 - Results Results: Laboratory Results WBC 14.4 x10^3/uL (4.8-10.8) H 09/01/22 10:44 RBC 5.26 10^6/uL (4.20-5.40) 09/01/22 10:44 Hgb 15.5 g/dL (12.0-16.0) 09/01/22 10:44 Hct 47.8 % (37.0-47.0) H 09/01/22 10:44 MCV 90.9 fL (81.0-99.0) 09/01/22 10:44 MCH 29.5 pg (27.0-31.0) 09/01/22 10:44 MCHC 32.4 g/dL (32.0-36.0) 09/01/22 10:44 RDW 14.1 % (12.0-15.0) 09/01/22 10:44 Plt Count 249 10^3/uL (130-450) 09/01/22 10:44 MPV 10.0 fL (7.9-10.8) 09/01/22 10:44 Neut # (Auto) 11.4 10^3/uL (1.5-6.6) H 09/01/22 10:44 Lymph # (Auto) 1.8 10^3/uL (1.5-3.5) 09/01/22 10:44 Marshall # (Auto) 1.0 10^3/uL (0.0-1.0) 09/01/22 10:44 Eos # (Auto) 0.2 10^3/uL (0.0-0.7) 09/01/22 10:44 Baso # (Auto) 0.1 10^3/uL (0.0-0.1) 09/01/22 10:44 Absolute Nucleated RBC 0.00 x10^3/uL 09/01/22 10:44 Nucleated RBC % 0.0 /100WBC 09/01/22 10:44 PT 11.4 secs (9.9-12.6) 09/01/22 10:44 INR 1.0 (0.8-1.2) 09/01/22 10:44 Sodium 144 mmol/L (135-145) 09/01/22 10:44 Potassium 3.9 mmol/L (3.5-5.0) 09/01/22 10:44 Chloride 109 mmol/L (101-111) 09/01/22 10:44 Carbon Dioxide 25 mmol/L (21-32) 09/01/22 10:44 Anion Gap 10.0 (6-13) 09/01/22 10:44 BUN 19 mg/dL (6-20) 09/01/22 10:44 Creatinine 0.8 mg/dL (0.4-1.0) 09/01/22 10:44 Estimated GFR (MDRD) 71 (>89) L 09/01/22 10:44 Glucose 98 mg/dL (70-100) 09/01/22 10:44 POC Whole Bld Glucose 129 mg/dL (70 - 100) H 09/03/22 07:59 Calcium 9.0 mg/dL (8.5-10.3) 09/01/22 10:44 Total Bilirubin 0.8 mg/dL (0.2-1.0) 09/01/22 10:44 AST 20 IU/L (10-42) 09/01/22 10:44 ALT 18 IU/L (10-60) 09/01/22 10:44 Alkaline Phosphatase 68 IU/L (42-121) 09/01/22 10:44 Troponin I High Sens 9.5 ng/L (2.3-14.8) 09/01/22 16:10 Total Protein 7.4 g/dL (6.7-8.2) 09/01/22 10:44 Albumin 4.0 g/dL (3.2-5.5) 09/01/22 10:44 Globulin 3.4 g/dL (2.1-4.2) 09/01/22 10:44 Albumin/Globulin Ratio 1.2 (1.0-2.2) 09/01/22 10:44 Lipase 27 U/L (22-51) 09/01/22 10:44 Vitamin B12 250 pg/mL (180-914) 09/01/22 16:10 Folate 10.43 ng/mL (5.90 - >24.8) 09/01/22 16:10 TSH 2.30 uIU/mL (0.34-5.60) 09/01/22 16:10 Urine Color YELLOW 09/01/22 14:55 Urine Clarity CLOUDY (CLEAR) 09/01/22 14:55 Urine pH 6.0 PH (5.0-7.5) 09/01/22 14:55 Ur Specific [place] 1.020 (1.002-1.030) 09/01/22 14:55 Urine Protein NEGATIVE mg/dL (NEGATIVE) 09/01/22 14:55 Urine Glucose (UA) NEGATIVE mg/dL (NEGATIVE) 09/01/22 14:55 Urine Ketones NEGATIVE mg/dL (NEGATIVE) 09/01/22 14:55 Urine Occult Blood NEGATIVE (NEGATIVE) 09/01/22 14:55 Urine Nitrite NEGATIVE (NEGATIVE) 09/01/22 14:55 Urine Bilirubin NEGATIVE (NEGATIVE) 09/01/22 14:55 Urine Urobilinogen 0.2 (NORMAL) E.U./dL (NORMAL) 09/01/22 14:55 Ur Leukocyte Esterase NEGATIVE (NEGATIVE) 09/01/22 14:55 Urine RBC None Seen /HPF (0-5) 09/01/22 14:55 Urine WBC 0-3 /HPF (0-5) 09/01/22 14:55 Ur Squamous Epith Cells MANY Squamous (<= Few) H 09/01/22 14:55 Urine Bacteria None Seen /HPF (None Seen) 09/01/22 14:55 Ur Microscopic Review INDICATED 09/01/22 14:55 Urine Culture Comments NOT INDICATED 09/01/22 14:55 Nasal Adenovirus (PCR) NOT DETECTED 09/01/22 14:26 Nasal B. parapertussis DNA (PCR) NOT DETECTED 09/01/22 14:26 Nasal Coronavir 229E PCR NOT DETECTED 09/01/22 14:26 Nasal Coronavir HKU1 PCR NOT DETECTED 09/01/22 14:26 Nasal Coronavir NL63 PCR NOT DETECTED 09/01/22 14:26 Nasal Coronavir OC43 PCR NOT DETECTED 09/01/22 14:26 Nasal Enterovir/Rhinovir PCR NOT DETECTED 09/01/22 14:26 Nasal Influenza B PCR NOT DETECTED 09/01/22 14:26 Nasal Influenza A PCR NOT DETECTED 09/01/22 14:26 Nasal Parainfluen 1 PCR NOT DETECTED 09/01/22 14:26 Nasal Parainfluen 2 PCR NOT DETECTED 09/01/22 14:26 Nasal Parainfluen 3 PCR NOT DETECTED 09/01/22 14:26 Nasal Parainfluen 4 PCR NOT DETECTED 09/01/22 14:26 Nasal RSV (PCR) NOT DETECTED 09/01/22 14:26 Nasal B.pertussis DNA PCR NOT DETECTED 09/01/22 14:26 Nasal C.pneumoniae (PCR) NOT DETECTED 09/01/22 14:26 Addy Human Metapneumo PCR NOT DETECTED 09/01/22 14:26 Nasal M.pneumoniae (PCR) NOT DETECTED 09/01/22 14:26 Nasal SARS-CoV-2 (PCR) NOT DETECTED 09/01/22 14:26 Urine Opiates Screen NEGATIVE (NEGATIVE) 09/01/22 14:55 Ur Oxycodone Screen NEGATIVE (NEGATIVE) 09/01/22 14:55 Urine Methadone Screen NEGATIVE (NEGATIVE) 09/01/22 14:55 Ur Propoxyphene Screen NEGATIVE (NEGATIVE) 09/01/22 14:55 Ur Barbiturates Screen NEGATIVE (NEGATIVE) 09/01/22 14:55 Ur Tricyclics Screen POSITIVE (NEGATIVE) H 09/01/22 14:55 Ur Phencyclidine Scrn NEGATIVE (NEGATIVE) 09/01/22 14:55 Ur Amphetamine Screen NEGATIVE (NEGATIVE) 09/01/22 14:55 U Methamphetamines Scrn NEGATIVE (NEGATIVE) 09/01/22 14:55 U Benzodiazepines Scrn POSITIVE (NEGATIVE) H 09/01/22 14:55 Urine Cocaine Screen NEGATIVE (NEGATIVE) 09/01/22 14:55 U Cannabinoids Screen POSITIVE (NEGATIVE) H 09/01/22 14:55
[2022-09-06] MEDS ORDERED: LIOTHYRONINE 5 MCG TABLET PO SCH (09:00)
[2022-09-06] MEDS ORDERED: lisinopriL 20 MG TABLET PO SCH (09:00)
[2022-09-06] MEDS ORDERED: hydrALAZINE 10 MG TABLET PO SCH (09:00)
[2022-09-06] MEDS: polyethylene glycoL 3350 17 GM PACKET PO SCH (09:20)
[2022-09-06] MEDS: CELECOXIB 100 MG CAPSULE PO SCH (09:20)
[2022-09-06] MEDS: ASPIRIN CHEW 81 MG TABLET PO SCH (09:20)
[2022-09-06] MEDS: MULTIVITAMIN W/MINERALS TABLET PO SCH (09:20)
[2022-09-06] MEDS: NYSTATIN CREAM 15 GM TUBE TOP SCH (09:21)
[2022-09-06] MEDS: SODIUM CHLORIDE FLUSH 0.9% 10 ML SYRINGE IVP SCH ×2 (09:21→16:56)
[2022-09-06] MEDS ORDERED: ZINC OXIDE 20% OINT 30 GM TUBE TOP PRN (09:39)
--- NOTE | 2022-09-06 13:07 | DISCHARGE SUMMARY ---
Discharge Summary Admit Date: 09/01/22 Discharge Date: 09/06/22 Discharging Provider: Dr Karyna Cohen Primary Care Provider: SHALINI Mccoy Condition at Discharge: Stable Discharge Disposition: 03 SNF DC/Xfer - HPI History of Present Illness: This is a 71-year-old female with past medical history significant for dementia, hypertension history of sleep apnea along with chronic back pain who does have a caregiver come to her house usually daily. Last known normal was yesterday evening and today caregiver could not get in her house about 8 AM. She was found significantly confused on the floor she was having some word finding difficulties and she had bilateral akathisia as she does have left leg weakness but this is chronic.Patient denies any new medications. She does use and smoke marijuana daily but notes that she gets it from a dispensary in [place]. She denies any other drug use. She denies any new medications. CTA of head and neck revealed no acute findings per ER MD. - HOSPITAL COURSE Hospital Course: (1) Acute encephalopathy Patient had MRI which revealed no acute abnormalities. Urine tox screen was p ositive for benzodiazepines tricyclics and cannabinoids. TSH, B12 and folate levels were normal. Patient improved back to baseline, which includes a poor memory. We suspected she was altered due to mistake made with her medications that she took, unsupervised at home and her daily cannabis use. This was on top of the fact that she has severe dementia. We advise no more cannabis use to her and the family members, continued to hold any melatonin, but restarted the Seroquel and eventually the Baclofen. (2) Akathisia Thought to be secondary to medication mistake and or cannabis use. Urine tox screen revealed positive for benzodiazepines tricyclics and cannabinoids (3) Cannabis abuse, daily use Hospitalist discussed with the son Wilman and with Wilman's that the patient should not be using marijuana at all because it adds to her confusion. (4) Dementia Patient did have mild to moderate dementia at baseline, per family.Cognitive eval was done by OT and she scored 5/30 indicating severe dementia. The family was told that this type of severe dementia requires 24/7 caregiving, and that discharge to a home to live alone, even part of the day, would not be a safe discharge. Cannabis use was to stop, we did not continue Mel[place]on, but did resume seroquel and eventually restarted baclofen at her request. She was discharged to a SNF for rehab and then more caregiving was the son's plan for his mother. (5) No able caregiver in household Patient lives alone at home. She got caregivers several days of the week and for only several hours. With her severe dementia, I recommend 24/7 caregiving. Wilman her son said he already wanted the patient to move in with him and for 5 years he has been trying to talk his mother into leave the house in [place] to not live alone. (6) Hypertension At home she was on lisinopril plus Lasix orally. We resumed daily Lisinopril and Lasix only on Mon, Wed, Fri, since she has no Hx of systolic heart failure. - ALLERGIES Allergies/Adverse Reactions: Allergies Allergy/AdvReac Type Severity Reaction Status Date / Time No Known Drug Allergies Allergy Verified 01/27/18 11:31 - MEDICATIONS Home Medications: Ambulatory Orders Medication Instructions Recorded Confirmed Baclofen [Lioresal] 20 mg PO TID PRN 09/23/12 09/02/22 lisinopriL [Lisinopril] 40 mg PO DAILY 09/23/12 09/02/22 Liothyronine Sodium [Cytomel] 5 mcg PO QDAC 04/05/13 09/02/22 Amitriptyline HCl 100 mg PO QPM 09/02/22 09/02/22 Celecoxib [CeleBREX] 100 mg PO BID 09/02/22 09/02/22 Levothyroxine [Synthroid] 75 mcg PO QDAC 09/02/22 09/02/22 Levothyroxine [Synthroid] 100 mcg PO UD 09/02/22 09/02/22 Magnesium Oxide 400 mg PO DAILY PRN 09/02/22 09/02/22 Melatonin 3 mg PO QPM 09/02/22 09/02/22 Quetiapine Fumarate [Seroquel] 50 mg PO QPM 09/02/22 09/02/22 diazePAM [Valium] 5 mg PO BID PRN 09/02/22 09/02/22 Aspirin Chewable [St Ryley 162 mg PO DAILY #60 tab 09/06/22 Aspirin] Atorvastatin [Lipitor] 80 mg PO QPM #30 tab 09/06/22 Furosemide [Lasix] 20 mg PO DAILY PRN #15 tab 09/06/22 - PHYSICAL EXAM AT DISCHARGE General Appearance: positive: No acute distress, Alert, Other (Mildly obese (BMI 34)) Eyes Bilateral: positive: Normal inspection, EOMI ENT: positive: ENT inspection nml, No signs of dehydration Neck: positive: Nml inspection, Thyroid nml, No JVD Respiratory: positive: No respiratory distress Cardiovascular: positive: Regular rate & rhythm, No murmur Abdomen: positive: Non-tender, Nml bowel sounds, Other (Obese with a pannus) Skin: positive: Warm, Dry Extremities: positive: Non-tender, No pedal edema Neurologic/Psychiatric: positive: Motor nml, Disoriented to person, Disoriented to place, Disoriented to time - LABS Result Diagrams: 09/01/22 10:44 09/01/22 10:44 - DIAGNOSTIC IMAGING Diagnostic Imaging Results: Final report reviewed - FOLLOW UP Follow Up: See PCP after discharge from SNF - TIME SPENT Time Spent in Discharge (Minutes): 40
--- NOTE | 2022-09-06 13:13 | Discharge Plan ---
"Discharge Plan for SNF / JASON - Discharge Plan And Transition Orders Problem Reviewed?: Yes Disposition: 03 SNF DC/Xfer Condition: Stable Allergies and Adverse Reactions: Allergies Allergy/AdvReac Type Severity Reaction Status Date / Time No Known Drug Allergies Allergy Verified 01/27/18 11:31 Health Concerns: The patient was hospitalized due to altered mental status of obtundation and agitation, which was likely caused by medication access ( ) plus cannabis abuse in addition to having no able caregiver at home. After she stabilized, she had a cognitive evaluation and she tested 09/17 on the SLUMS eval, indicating severe dementia.Therefore, it is unsafe to have her live alone at home, she now needs 24/7 caregivers. She is being discharged to SNF for PT and OT rehab first. Plan of Treatment: As above. Care Goals: Improvement in symptoms and stabilization are the goals. Assessment: The patient and son are agreeable with the plan. - SNF / HALF-WAY Transition Orders Admit to (Facility): [facility] Under the care of (Name): Her PCP Discharge Diagnosis: (1) Acute encephalopathy (2) Akathisia (3) Cannabis abuse (4) Dementia (5) No able caregiver in household (6) Hypertension Medicare Certification Statement: I certify that Post Hospital correction care is medically necessary on a continuing basis for any of the conditions for which she/he is receiving care during hospitalization. Notify PCP of admission and forward orders to primary provider for signature. Weight on admission and: Weekly Call PCP immediately if weight increases by: 5 kg Other Notification Orders: Call PCP immediately if patient develops dyspnea, chest pain/tightness or edema. House Bowel Program: Yes Additional Bowel Program Orders: If no BM after 2 days, nurse may give M.O.M. 30ml PO PRN and/or ducolax Supp 1 MD and/or LUZ 250mg P.O., and/or senna 1-2 tabs PO. On day 3 nurse may give repeat above order until residents constipation is resolved. Annual Influenza Vaccine (between Dec 20 and July 19): Yes Two-step PPD per [facility] [phone] or approved exception documents: Yes Treatments & Other Orders: Daily PT and OT Medication Orders: PLEASE REFER TO THE DISCHARGE MEDICATION LIST. Insulin Orders?: No - Medications New Prescriptions: Furosemide [Lasix] 20 mg PO DAILY PRN #15 tab PRN Reason: As Needed Per Provider Orders Atorvastatin [Lipitor] 80 mg PO QPM #30 tab Aspirin Chewable [St Ryley Aspirin] 162 mg PO DAILY #60 tab - Diet Type: No added salt Texture: Regular Liquids: Thin May have monthly special meal: Yes - Therapies | Activity Therapy: Evaluation | Treat if indicated: PT, OT Rehabilitation Potential: Maximize functional status Activity: Activity as Tolerated Weight Bearing: Full Weight Assistance Devices: Walker Follow Up: See PCP after finished with SNF."
[2022-09-06 15:06] VITALS: BP 149/82
== END 2022-09-06 18:44 | DRG 93 ==
LOC: EDUNIT# → ED 09:25 → MS2 16:00 → OBSVTOIN 09-02 11:08
PROVIDERS: ADMIT Specialist; ATTEND Internal Medicine
DX: I63.9 Cerebral infarction, unspecified (principal); R47.01 Aphasia; G83.14 Monoplegia of lower limb affecting left nondominant side; R29.706 NIHSS score 6; G92.8 Other toxic encephalopathy; I44.7 Left bundle-branch block, unspecified; D72.829 Elevated white blood cell count, unspecified; G93.40 Encephalopathy, unspecified; T50.911A Poisoning by multiple unspecified drugs, medicaments and biological substances, accidental (unintentional), initial encounter; I10 Essential (primary) hypertension; G47.33 Obstructive sleep apnea (adult) (pediatric); G89.29 Other chronic pain; Z20.822 Contact with and (suspected) exposure to COVID-19; M54.9 Dorsalgia, unspecified; F03.90 Unspecified dementia, unspecified severity, without behavioral disturbance, psychotic disturbance, mood disturbance, and anxiety; Z87.891 Personal history of nicotine dependence; F12.188 Cannabis abuse with other cannabis-induced disorder; G25.71 Drug induced akathisia; F03.B0 Unspecified dementia, moderate, without behavioral disturbance, psychotic disturbance, mood disturbance, and anxiety
CPT/HCPCS: 36415; 51701; 70496; 70498; 70551; 71045; 80053; 80306; 81001; 82607; 82746; 83690; 84443; 84484; 85025; 85610; 87633; 92610; 93005; 97162; 97166; 97530; 97535; 99285; A9270; Q9967; 81003; 87086

== ENCOUNTER 2022-09-06 18:38 | Outpatient (CLI) | payer MEDICARE, OTHER, MEDICAID | END 2022-09-06 18:39 | LOC: EMS 18:38 | PROVIDERS: ATTEND Internal Medicine | DX: R41.0 Disorientation, unspecified (principal); F03.90 Unspecified dementia, unspecified severity, without behavioral disturbance, psychotic disturbance, mood disturbance, and anxiety; I10 Essential (primary) hypertension | CPT/HCPCS: A0425; A0428 ==

== ENCOUNTER 2022-10-22 08:00 | Outpatient (CLI) | payer MEDICARE, OTHER, MEDICAID | END 2022-10-22 23:59 | disposition home or self-care (01) | LOC: LAB.R 08:00 | PROVIDERS: ATTEND Registered Nurse | DX: E03.9 Hypothyroidism, unspecified (principal) | CPT/HCPCS: 84443 ==

== ENCOUNTER 2023-06-23 14:00 | Outpatient (CLI) | payer MEDICARE, OTHER | END 2023-06-23 14:15 | disposition home or self-care (01) | LOC: LAB.N 14:00 | PROVIDERS: ATTEND Physician Assistant | DX: L03.90 Cellulitis, unspecified (principal) | CPT/HCPCS: 87070; 87181; 87205 ==

== ENCOUNTER 2023-07-11 09:47 | Outpatient (CLI) | payer MEDICARE, OTHER ==
--- NOTE | 2023-07-11 10:30 | Sleep Patient Instructions ---
Sleep Center Visit Summary - Patient Visit Information Reason for Visit: Annual follow-up - Patient Instructions Additional Instructions: You will be completing a sleep study, either an in-lab polysomnography (PSG) or home sleep study (HST). You will follow-up in the sleep care office after the sleep study is completed to hear the results and talk about therapy, if needed. You will be called by our office staff to schedule this appointment, but you may contact us with any questions. - Clinic Information Contact: [facility] [address] [place] [address] [email or web address] T: [phone]
[2023-07-11 10:41] VITALS: BP 124/81; O2SAT 98
--- NOTE | 2023-07-11 10:41 | SLEEP CARE CONSULTATION ---
Information from patient questionnaire entered by Lucy Spears. I have reviewed and concur with the information entered by Lucy Spears. This document represents the service I personally performed and the decisions made by me, Eli Mensah ARNP. History of Present Illness Service Date and Time: 07/11/2023 0947 Previous diagnosis: Moderate, Obstructive Sleep Apnea-Hypopnea Syndrome AHI: 25.7 (in 2014)(14.9 in 2012) Reason for follow up: annual (LAST SEEN 12/2020) Accompanied by: Nevaeh Hightower Equipment type: CPAP (MACHINE) Prior sleep studies: Yes Year and Where: 2014 and 2012 - [facility]; 2007 - [facility] Type of Sleep Study: Polysomnography HPI additional information: SADAF SALGADO was diagnosed to have moderate, AHI 25.7, obstructive sleep apnea-hypopnea syndrome in 2014 and returned today with her [id number] Katja for support because she has been diagnosed with dementia for annual follow-up. She has not been using her CPAP for many years. Her current complaints are snoring, observed pauses in breathing, unrefreshed sleep and fatigue. The patient tells me that she normally goes to bed around 10 Pm -12 AM, and it takes her approximately 30 minutes to fall asleep. She has been told that she snores loudly and irregularly at night. She has been observed to stop breathing in her sleep. She can recall waking up on the average of 1-2 times during the night. Most of the time she wakes up because of bathroom. She has not awakened for her own snoring, choking, and having to gasp for air. There is a lot of tossing and turning in her sleep. Generally there is no recollection of dreams. She usually wakes up at 7-8 AM and does not feel refreshed. She usually does not have a morning headache. During the day she complains of feeling sleepy and fatigued. She does not drive. She usually does not take naps during the day. If she naps, upon falling asleep during the day she denies having vivid dreams. She reports having impaired concentration during the day. Sleep Study - Results Type of Sleep Study: Polysomnography Prior sleep studies: Yes Year and Where: 2014 and 2012 - [facility]; 2008 - [facility] CPAP Compliance Data Compliance data discussion: Sadaf has not been using CPAP for many years because she had to return it due to nonuse. Subjective Initial Newberg Sleepiness Scale score: 16 (in 2013) Current Newberg Sleepiness Scale score: 0 (07/11/23) Allergies and Home Medications Known drug allergies: No Drug allergies reviewed: Yes Home medication list reviewed: Yes (no changes) Allergy and home medication list: Allergies No Known Drug Allergies Allergy (Verified 07/09/23 12:08) Review of Systems Review of systems same as previous: Yes (NO CHANGE) Physical Exam Vital signs obtained and entered by: LUCY Bonilla MA Blood Pressure: 124/81 (LEFT ARM) Cuff size: regular Heart Rate: 95 O2 Saturation: 98 Height: 5 ft 7 in Weight: 215 lb 3.2 oz Body Mass Index: 33.7 BMI Classification: Obese Impression and Plan 1. Obstructive Sleep Apnea-Hypopnea Syndrome, moderate. She has not been using her CPAP and would like to restart CPAP therapy and she still has irregular snoring, observed cessation of breath while asleep, unrefreshed sleep, cognitive impairment and daytime fatigue. She needs to re-qualify to restart therapy. I recommend proceeding to polysomnography to confirm the diagnosis and to assess severity. I obtained agreement to proceed. The pathophysiology of obstructive sleep apnea-hypopnea syndrome was discussed with the patient and health risks of cardiovascular and cerebrovascular disease if not treated. She agreed with plan. Patient's apnea severity and rationale for treatment to reduce apnea, improve sleep quality and reduce cardiovascular and cerebrovascular events was reviewed. I also reviewed the benefit of consistent device use of CPAP for hypertension, depression/anxiety. She has been diagnosed with dementia within last year or so. 2. Obesity, unspecified. Currently patients BMI is 33.7. Obesity increases the risk of apnea, CPAP pressure requirements and overall health risks especially cardiovascular and diabetes. Thus patient is advised to lose weight. * PSG to verify diagnosis and severity * Attempt to lose weight * Call this office if any problems * Return for follow up after sleep study, or sooner if concerns arise Counseling Topics: Weight loss health impact Plan: PSG Visit Type: In Office Time Spent with Patient (minutes): 27 Provider Statement: I spent 100% of the Face to Face Visit with the patient with greater than 50% spent counseling the patient and coordination of care.
== END 2023-07-11 09:48 | disposition home or self-care (01) ==
LOC: SC 09:47
PROVIDERS: ATTEND Nurse Practitioner Family
DX: G47.33 Obstructive sleep apnea (adult) (pediatric) (principal)
CPT/HCPCS: 99213; G0463; 99212

== ENCOUNTER 2023-08-15 19:27 | Outpatient (CLI) | payer MEDICARE, OTHER | END 2023-08-15 19:28 | disposition home or self-care (01) | LOC: SC 19:27 | PROVIDERS: ATTEND Nurse Practitioner Family | DX: G47.33 Obstructive sleep apnea (adult) (pediatric) (principal); G47.61 Periodic limb movement disorder; I10 Essential (primary) hypertension; F32.A Depression, unspecified; E66.9 Obesity, unspecified; Z68.41 Body mass index [BMI] 40.0-44.9, adult | CPT/HCPCS: 95810 ==

== ENCOUNTER 2023-09-10 13:50 | Outpatient (CLI) | payer MEDICARE, OTHER, MEDICAID ==
--- NOTE | 2023-09-10 14:17 | Sleep Patient Instructions ---
Sleep Center Visit Summary - Patient Visit Information Reason for Visit: Sleep study follow-up - Patient Instructions Additional Instructions: You will be completing a titration sleep study in our sleep lab where you will be sleeping with the CPAP machine on and we will be adjusting your pressures to find your optimal pressure settings. Once we have your results back, we will call you and schedule a follow up to go over the results, you may contact us with any questions or issues as needed. - Clinic Information Contact: [facility] [address] [place] [id number] [email or web address] T: [phone]
--- NOTE | 2023-09-10 14:19 | SLEEP CARE CONSULTATION ---
Information from patient questionnaire entered by Lucy Spears. I have reviewed and concur with the information entered by Lucy Spears. This document represents the service I personally performed and the decisions made by , Eli Mensah ARNP. History of Present Illness Service Date and Time: 09/10/2023 1350 Accompanied by: Katja Initial [place] Sleepiness Scale score: 16 (in 2012) Current [place] Sleepiness Scale score: 2 (09/10/23) Additional HPI information: ALEYDA SALGADO returns with Katja, her daughter in law, for follow up and results of the recently performed polysomnography. The sleep study showed moderate central sleep apnea with an average AHI of 21.3 and lucero oxygen saturation of 82%. She had severe PLMs contributing to sleep fragmentation. I explained the pathophysiology behind obstructive sleep apnea. We then spent quite a bit of time discussing different treatment options. For mild obstructive sleep apnea, surgery and oral appliance are alternatives to nasal CPAP therapy but in moderate or severe cases, nasal CPAP is the most effective and reliable treatment. I reviewed the impact of weight changes on sleep apnea and strongly recommended losing weight. After some discussion, the patient opted to go with the nasal CPAP therapy. A manual titration study will be ordered to find optimal pressure with office adjustments. Patient does not drink alcohol. Patient was cautioned about risks of drowsy driving until sleepiness symptoms resolve. Patient denies drowsy driving because she does not drive. Sleep Study - Results Type of Sleep Study: Polysomnography (COMPLETED 08/15/23) Prior sleep studies: Yes Year and Where: 2014 and 2012 - [facility] Sleep; 2007 - [facility] Polysomnography/Home Sleep Study results: IMPRESSION: The quality of the study is good. The patient had normal sleep efficiency. The sleep architecture was abnormal for sleep fragmentation and reduced amount of time spent in REM sleep. Respiratory monitoring showed moderate central sleep apnea-hypopnea (AHI = 21.3) associated with freque nt arousals, oxyhemoglobin desaturation and mild hypoxia (lucero oxygen saturation of 82%). The respiratory events occurred more frequently during supine sleep (supine AHI = 43.5; non-supine = 17.81). Snore was light to moderate in intensity. There was severe periodic leg movement of sleep contributing to the sleep fragmentation. Cardiac rhythm was normal sinus rhythm without significant arrhythmia. No abnormal behavior (parasomnia) observed during the night. CONCLUSIONS and RECOMMENDATIONS: 1. The patient has moderate central sleep apnea-hypopnea. ICD-10 G47.31. Positive airway pressure therapy is indicated. The patient should return for a manual CPAP/BiPAP titration study. Common causes of central sleep apnea included congestive heart failure, [employer] diseases, and opiate drugs. Central apneas can also be idiopathic or secondary to obstructive apneas. 2. Periodic leg movement of sleep (ICD G47.61), severe, treatment may be indicated. Clinical correlation advised. Allergies and Home Medications Known drug allergies: No Drug allergies reviewed: Yes Home medication list reviewed: Yes (no changes) Allergy and home medication list: Allergies No Known Drug Allergies Allergy (Verified 09/08/23 10:25) Review of Systems Review of systems same as previous: Yes (no change) Physical Exam Vital signs obtained and entered by: LUCY Bonilla MA Blood Pressure: 138/94 (right arm) Cuff size: regular Heart Rate: 112 O2 Saturation: 96 Height: 5 ft 7 in Weight: 213 lb Body Mass Index: 33.3 BMI Classification: Obese Impression and Plan 1. Central Sleep Apnea-Hypopnea Syndrome, moderate, with lowest oxygen saturation of 82%. Obviously this is the cause of the patients symptoms of unrefreshed sleep, and excessive daytime sleepiness. Positive pressure therapy could benefit hypertension, depression and anxiety. As mentioned above, the patient will be started on nasal autoCPAP therapy. A manual titration study will be completed to find optimal treatment pressure with office adjustments. Compliance guidelines also reviewed. A copy of compliance guidelines will be given for reference at check out. Because the apnea is more severe supine, I instructed to avoid sleeping supine using pillow positioning until able to start CPAP use. 2. Hypoxemia, mild, with a lucero oxygen saturation of 82% and 27.7 minutes spent under 90%. The baseline oxygen saturation was normal with an average oxygen saturation of 91%. 3. Periodic limb movement, severe, that did contribute to the fragmentation of the patients sleep. Periodic limb movement of sleep (PLMS) is characterized by episodes of repetitive limb movements that occur during sleep and usually involve the lower limbs. The etiology is unknown. Sleep hygiene methods can also improve sleep as well as lifestyle changes such as regular exercise. Patient was advised that no treatment is needed at this time. If symptoms increase, then further evaluation is indicated. 4. Obesity, unspecified. Currently patients BMI is 33.3. Obesity increases the risk of apnea, CPAP pressure requirements and overall health risks especially cardiovascular and diabetes. Thus patient is advised to lose weight. * Titration study * Attempt to lose weight. * Avoid supine sleep until using CPAP. * Return after titration study for review of results and to initiate therapy. Counseling Topics: Sleeping position, Weight loss health impact Plan: Titration study and followup Visit Type: In Office Time Spent with Patient (minutes): 22 Provider Statement: I spent 100% of the Face to Face Visit with the patient with greater than 50% spent counseling the patient and coordination of care.
[2023-09-10 14:28] VITALS: BP 138/94; O2SAT 96
== END 2023-09-10 13:51 | disposition home or self-care (01) ==
LOC: SC 13:50
PROVIDERS: ATTEND Nurse Practitioner Family
DX: G47.31 Primary central sleep apnea (principal); G47.61 Periodic limb movement disorder; R09.02 Hypoxemia; E66.9 Obesity, unspecified; Z68.33 Body mass index [BMI] 33.0-33.9, adult
CPT/HCPCS: 99213; G0463; 99212

== ENCOUNTER 2023-10-17 19:36 | Outpatient (CLI) | payer MEDICARE, OTHER, MEDICAID | END 2023-10-17 19:37 | disposition home or self-care (01) | LOC: SC 19:36 | PROVIDERS: ATTEND Nurse Practitioner Family | DX: G47.31 Primary central sleep apnea (principal); G47.61 Periodic limb movement disorder | CPT/HCPCS: 95811 ==

== ENCOUNTER 2023-11-20 15:06 | Outpatient (CLI) | payer MEDICARE, OTHER, MEDICAID ==
--- NOTE | 2023-11-20 15:31 | SLEEP CARE CONSULTATION ---
Information from patient questionnaire entered by Lucy Spears. I have reviewed and concur with the information entered by Lucy Spears. This document represents the service I personally performed and the decisions made by , Eli Mensah ARNP. History of Present Illness Service Date and Time: 11/20/2023 1506 Accompanied by: carlos eduardo Hightower Initial [place] Sleepiness Scale score: 16 (in 2012) Current [place] Sleepiness Scale score: 3 (11/20/23) Additional HPI information: ALEYDA SALGADO returns for follow up of a manual CPAP titration study performed on 10/17/2023. She is accompanied by her daughter in law. Previous study done on 08/15/2023 showed moderate central sleep apnea with AHI 21.3. The patient was informed of the following polysomnography findings: CPAP was initiated at 7 cmH2O and titrated up to BiPAP S/T at 23/17 cmH2O with a backup rate of 8. CPAP at 7 cmH2O appeared to be optimal (AHI of 0 per hour on the pressure). There was supine sleep on the pressure. Oxygen saturation was mildly low due to residual respiratory events. Higher pressures were associated with frequent central apneas, requiring BiPAP S/T. The patient appeared to have some difficulty tolerating positive airway pressure therapy. I explained how CPAP machine works and what to expect when using the machine. Using CPAP every night in order to get used to it was emphasized. Patient advised to put CPAP mask on before getting into bed so as not to fall asleep without CPAP. To assist acclimation to CPAP use, it could also be used for a short time during day while reading or watching TV. The patient was instructed to call the CPAP supplier to discuss any mechanical problem that may occur. If the mask given is uncomfortable or is difficult to keep on through the night even with adjustment, contact the CPAP supplier as many will replace with another mask style if notified before 30 days. If snoring or perceives is not getting enough air or too much air from the machine, notify this office. Patient does not drink alcohol. Patient does not drive. Sleep Study - Results Type of Sleep Study: Polysomnography (COMPLETED 08/15/23 TITRATION STUDY COMPLETED 10/17/23) Prior sleep studies: Yes Year and Where: 2014 and 2012 - [facility] Sleep; 2007 - [facility] Polysomnography/Home Sleep Study results: IMPRESSION: The quality of the study is good. CPAP was initiated at 7 cmH2O and titrated up to BiPAP S/T at 23/17 cmH2O with a backup rate of 8. CPAP at 7 cmH2O appeared to be optimal (AHI of 0 per hour on the pressure). There was supine sleep on the pressure. Oxygen saturation was mildly low due to residual respiratory events. Higher pressures were associated with frequent central apneas, requiring BiPAP S/T. The patient appeared to have some difficulty tolerating positive airway pressure therapy. The patients sleep efficiency was reduced due to prolonged awakenings in the first half of the night. The sleep architecture was abnormal for sleep fragmentation and lack of REM sleep. There was severe periodic leg movement of sleep contributing to the sleep fragmentation. Cardiac rhythm was normal sinus rhythm without significant arrhythmia. No abnormal behavior (parasomnia) observed during the night. Allergies and Home Medications Known drug allergies: No Drug allergies reviewed: Yes Home medication list reviewed: Yes (Gabapentin 100 mg (2 tablets at night)) Allergy and home medication list: Allergies No Known Drug Allergies Allergy (Verified 11/20/23 15:05) Review of Systems Review of systems same as previous: Yes (NO CHANGE) Physical Exam Vital signs obtained and entered by: LUCY Bonilla MA Blood Pressure: 162/86 (LEFT ARM) Cuff size: long Heart Rate: 95 O2 Saturation: 93 Height: 5 ft 7 in Weight: 211 lb 12.8 oz Body Mass Index: 33.1 BMI Classification: Obese Impression and Plan 1. Central Sleep Apnea-Hypopnea Syndrome, moderate. She returns to office after titration study. Her optimal pressure appeared to be 7 cmH2O and 4-8 cmH2O could also be appropriate. Positive pressure therapy could benefit hypertension, depression and anxiety. The patient will be started on nasal autoCPAP therapy with pressure set at 4-8 cmH2O. Compliance guidelines also reviewed. A copy of compliance guidelines will be given for reference at check out. 2. Periodic limb movement, severe, that did not fragment patients sleep. Periodic limb movement of sleep (PLMS) is characterized by episodes of repetitive limb movements that occur during sleep and usually involve the lower limbs. The etiology is unknown. Sleep hygiene methods can also improve sleep as well as lifestyle changes such as regular exercise. Patient was advised that no treatment is needed at this time. If symptoms increase, then further evaluation is indicated. 3. Obesity, unspecified. Currently patients BMI is 33.1. Obesity increases the risk of apnea, CPAP pressure requirements and overall health risks especially cardiovascular and diabetes. Thus patient is advised to lose weight. * Nasal auto CPAP therapy, pressure at 4-8 cm H2O. * Attempt to lose weight. * Avoid alcohol consumption near bedtime. * Avoid supine sleep until using CPAP. * The patient is again cautioned about driving until sleepiness completely resolves. * Return one month after CPAP obtained. I will assess response to therapy and compliance at that time. Counseling Topics: Weight loss health impact Prescriptions: Auto CPAP Plan: start Cpap and followup Visit Type: In Office Time Spent with Patient (minutes): 21 Provider Statement: I spent 100% of the Face to Face Visit with the patient with greater than 50% spent counseling the patient and coordination of care.
--- NOTE | 2023-11-20 15:31 | Sleep Patient Instructions ---
Sleep Center Visit Summary - Patient Visit Information Reason for Visit: Titration study follow-up - Patient Instructions Additional Instructions: You were here for follow up of titration study. You will be continued on CPAP therapy with pressure at 4-8 cmH2O. You should follow up with sleep care in 1-2 months. You may contact us sooner for any questions or concerns. - Clinic Information Contact: [facility] [address] [place] [address] [email or web address] T: [phone]
[2023-11-20 15:35] VITALS: BP 162/86; O2SAT 93
== END 2023-11-20 15:07 | disposition home or self-care (01) ==
LOC: SC 15:06
PROVIDERS: ATTEND Nurse Practitioner Family
DX: G47.31 Primary central sleep apnea (principal); G47.61 Periodic limb movement disorder; E66.9 Obesity, unspecified; Z68.33 Body mass index [BMI] 33.0-33.9, adult
CPT/HCPCS: 99213; G0463; 99212